=== PATIENT | male | born 1930 | race Caucasian/White ===

== ENCOUNTER 2017-07-16 16:33 | Inpatient (IN) ==
--- OUTSIDE RECORDS SUMMARY | 2017-07-16 17:01 | External Medical Summary | Continuity of Care Document ---
:1930 Author Organization [facility] Care Team Providers Name Role Phone SENIOR STEWART PRADO Admitting Physician NIKOLAS ZABMRANO Attending Physician Hospital Admission Diagnosis Code Admission Diagnosis Date [id number] Chronic atrial fibrillation Social History Element Code Description Smoking Start Date End Date Description Status Code System Smoking Status [id number] Unknown if ever SNOMED-CT smoked Problems No data in the system Medications SNOMED CT Description [id number] Drug Treatment Unknown Allergies No Allergy Data in the System Results Laboratory Results Order: Protime With INRLegend: D=Delta, H= High, L=Low, HH=Critical High, LL=Critical Low, AA=Critical Alpha-Numeric, C= Corrected, A=Abnormal LOINC Test Result Flag Range Units Date 1PT 26.3 H 9.1-11.6 Seconds 06/07/2016 05:35 36367-2 1INR p 2.50 H 0.90-1.15 06/07/2016 heparin 05:35 adsorption PPP Performing [id number] - [address] [place], [place] [address]GBZCARLOS SWARTZ Vital Signs No data in the system Plan of Care No data in the system Procedures No data in the system Encounters Date Code Diagnosis Status (ICD10) - I482 CHRONIC ATRIAL FIBRILLATION Active Immunizations No data in the system Functional Status No data in the system Hospital Discharge Instructions No data in the system
--- OUTSIDE RECORDS SUMMARY | 2017-07-16 17:01 | External Medical Summary | Continuity of Care Document ---
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 Social History Element Code Description Smoking Start Date End Date Description Status Code System Smoking Status [id number] Unknown if ever SNOMED-CT smoked Problems No data in the system Medications SNOMED CT Description 811108274 Drug Treatment Unknown Allergies No Allergy Data in the System Results Laboratory Results Order: Protime With INRLegend: D=Delta, H= High, L=Low, HH=Critical High, LL=Critical Low, AA=Critical Alpha-Numeric, C= Corrected, A=Abnormal LOINC Test Result Flag Range Units Date 1PT 27.4 H 9.1-11.6 Seconds 01/31/2017 06:25 74454-2 1INR p 2.63 H 0.90-1.15 01/31/2017 heparin 06:25 adsorption PPP [facility]forming [facility] [id number] - [address] [place] [address] - [facility] Vital Signs No data in the system Plan of Care No data in the system Procedures No data in the system Encounters Date Code Diagnosis Status (ICD10) - 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
--- OUTSIDE RECORDS SUMMARY | 2017-07-16 17:01 | External Medical Summary | Continuity of Care Document ---
:1930 Author Organization [facility] Care Team Providers Name Role Phone SENIOR JOHAN LIVING Admitting Physician NIKOLAS ZAMBRANO Attending Physician Hospital Admission Diagnosis No data in the System Social History Element Code Description Smoking Start Date End Date Description Status Code System Smoking Status [id number] Unknown if ever SNOMED-CT smoked Problems No data in the system Medications SNOMED CT Description 168929601 Drug Treatment Unknown Allergies No Allergy Data in the System Results Laboratory Results Order: Protime With INRLegend: D=Delta, H= High, L=Low, HH=Critical High, LL=Critical Low, AA=Critical Alpha-Numeric, C= Corrected, A=Abnormal LOINC Test Result Flag Range Units Date 1PT 23.5 H 9.1-11.6 Seconds 04/25/2017 05:50 39133-9 1INR p 2.26 H 0.90-1.15 04/25/2017 heparin 05:50 adsorption PPP Performing [facility] [id number] - [address] [place] [address] - [facility] Vital Signs No data in the system Plan of Care No data in the system Procedures No data in the system Encounters No data in the system Immunizations No data in the system Functional Status No data in the system Hospital Discharge Instructions No data in the system
--- OUTSIDE RECORDS SUMMARY | 2017-07-16 17:01 | External Medical Summary | Continuity of Care Document ---
:1930 Author Organization [facility] Care Team Providers Name Role Phone SENIOR JOHAN LIVING Admitting Physician NIKOLAS ZAMBRANO Attending Physician Hospital Admission Diagnosis No data in the System Social History Element Code Description Smoking Start Date End Date Description Status Code System Smoking Status [id number] Never smoker SNOMED-CT Problems No data in the system Medications SNOMED CT Description 994275048 Drug Treatment Unknown Allergies No Allergy Data in the System Results Laboratory Results Order: Protime With INRLegend: D=Delta, H= High, L=Low, HH=Critical High, LL=Critical Low, AA=Critical Alpha-Numeric, C= Corrected, A=Abnormal LOINC Test Result Flag Range Units Date 1PT 29.7 H 9.1-11.6 Seconds 12/27/2016 06:25 53810-8 1INR p 2.86 H 0.90-1.15 12/27/2016 heparin 06:25 adsorption PPP Performing [facility] [id number] - [address] [place] [address] - [facility] Vital Signs No data in the system Plan of Care No data in the system Procedures No data in the system Encounters No data in the system Immunizations No data in the system Functional Status No data in the system Hospital Discharge Instructions No data in the system
--- OUTSIDE RECORDS SUMMARY | 2017-07-16 17:01 | External Medical Summary | Continuity of Care Document ---
:1930 Author Organization [facility] Care Team Providers Name Role Phone SENIOR JOHAN LIVING Admitting Physician NIKOLAS ZAMBRANO Attending Physician Hospital Admission Diagnosis No data in the System Social History Element Code Description Smoking Start Date End Date Description Status Code System Smoking Status [id number] Unknown if ever SNOMED-CT smoked Problems No data in the system Medications SNOMED CT Description 148886535 Drug Treatment Unknown Allergies No Allergy Data in the System Results Laboratory Results Order: Protime With INRLegend: D=Delta, H= High, L=Low, HH=Critical High, LL=Critical Low, AA=Critical Alpha-Numeric, C= Corrected, A=Abnormal LOINC Test Result Flag Range Units Date 1PT 31.4 H 9.1-11.6 Seconds 12/20/2016 06:00 44148-3 1INR p 3.02 H 0.90-1.15 12/20/2016 heparin 06:00 adsorption PPP Performing [facility] [id number] [facility] [address] [place] [address] - [facility] Vital Signs No data in the system Plan of Care No data in the system Procedures No data in the system Encounters No data in the system Immunizations No data in the system Functional Status No data in the system Hospital Discharge Instructions No data in the system
--- OUTSIDE RECORDS SUMMARY | 2017-07-16 17:01 | External Medical Summary ---
:1930 Author Organization [facility] Care Team Providers Name Role Phone NIKOLAS ZAMBRANO MD Primary Care Provider [phone] Summary purpose CCDA Sent to [facility] Chief Complaint and Reason for Visit No authorized Reason for Visit (Admitting Diagnosis) is available for this visit. Problem list No authorized problems tracked for continuity of care are available for this visit. Encounters No authorized problems tracked for encounter diagnoses are available for this visit. Medications No medications recorded for this patient visit Allergies, adverse reactions, alerts No allergy information is available for this patient. Immunizations No immunizations recorded for this patient visit Relevant diagnostic tests and/or laboratory data RESULTS [facility] [id number]:31:00 Result Normal Range Units INR 2.63 Protime H 26.5 9.0-11.0 Sec History of procedures Procedure Code Code Type Description Date Performed Performing Physician 03086 CPT-4 ROUTINE VENIPUNCTURE 03-06-2016 NIKOLAS ZAMBRANO 69803 CPT-4 PROTHROMBIN TIME 03-06-2016 NIKOLAS ZAMBRANO Functional status No functional or cognitive status observations are available for this visit. Vital signs No authorized vital signs are available for this visit. Social history No Social History or smoking status observations were recorded for this visit. ( Unknown if ever smoked.) Treatment Plan No treatment plan text is available for this visit. Hospital discharge instructions No discharge instruction text is available for this visit.
--- OUTSIDE RECORDS SUMMARY | 2017-07-16 17:01 | External Medical Summary | Continuity of Care Document ---
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 Social History Element Code Description Smoking Start Date End Date Description Status Code System Smoking Status [id number] Unknown if ever SNOMED-CT smoked Problems No data in the system Medications SNOMED CT Description 206169304 Drug Treatment Unknown Allergies No Allergy Data in the System Results Laboratory Results Order: Protime With INRLegend: D=Delta, H= High, L=Low, HH=Critical High, LL=Critical Low, AA=Critical Alpha-Numeric, C= Corrected, A=Abnormal LOINC Test Result Flag Range Units Date 1PT 29.7 H 9.1-11.6 Seconds 04/18/2017 05:40 58083-5 1INR p 2.86 H 0.90-1.15 04/18/2017 heparin 05:40 adsorption PPP Performing Lab Footnotes:[facility] [id number] - [address] [place] [address] - [facility] Vital Signs No data in the system Plan of Care No data in the system Procedures No data in the system Encounters Date Code Diagnosis Status (ICD10) - Z7901 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
--- OUTSIDE RECORDS SUMMARY | 2017-07-16 17:01 | External Medical Summary | Continuity of Care Document ---
:1930 Author Organization [facility] Care Team Providers Name Role Phone SENIOR STEWART PRADO Admitting Physician NIKOLAS ZAMBRANO Attending Physician Hospital Admission Diagnosis Code Admission Diagnosis Date [id number] Chronic atrial fibrillation Social History Element Code Description Smoking Start Date End Date Description Status Code System Smoking Status [id number] Unknown if ever SNOMED-CT smoked Problems No data in the system Medications SNOMED CT Description 684258528 Drug Treatment Unknown Allergies No Allergy Data in the System Results Laboratory Results Order: Protime With INRLegend: D=Delta, H= High, L=Low, HH=Critical High, LL=Critical Low, AA=Critical Alpha-Numeric, C= Corrected, A=Abnormal LOINC Test Result Flag Range Units Date 1PT 24.2 H 9.1-11.6 Seconds 07/05/2016 06:10 36453-6 1INR p 2.31 H 0.90-1.15 07/05/2016 heparin 06:10 adsorption PPP Performing Lab Footnotes:[facility] - [id number] - [address] [place], [place] [address]NYSCARLOS SWARTZ Vital Signs No data in the system Plan of Care No data in the system Procedures No data in the system Encounters Date Code Diagnosis Status (ICD10) - I482 CHRONIC ATRIAL FIBRILLATION Active Immunizations No data in the system Functional Status No data in the system Hospital Discharge Instructions No data in the system
--- OUTSIDE RECORDS SUMMARY | 2017-07-16 17:01 | External Medical Summary | Continuity of Care Document ---
:1930 Author Organization [facility] Care Team Providers Name Role Phone NIKOLAS ZAMBRANO Admitting Physician NIKOLAS ZAMBRANO Attending Physician Hospital Admission Diagnosis No data in the System Social History Element Code Description Smoking Start Date End Date Description Status Code System Smoking Status [id number] Unknown if ever SNOMED-CT smoked Problems No data in the system Medications SNOMED CT Description 497117929 Drug Treatment Unknown Allergies No Allergy Data in the System Results Laboratory Results Order: UrinalysisLegend: D=Delta, H=High, L =Low, HH=Critical High, LL=Critical Low, AA=Critical Alpha-Numeric, C=Corrected , A=Abnormal LOINC Test Result Flag Range Units Date 5778-6 Straw 07/11/2017 1Color Ur 16:25 17771-8 Clear 07/11/2017 1Clarity Ur 16:25 2966-0 1Sp 1.015 1.005-1.030 07/11/2017 Gr 24h Ur 16:25 2756-5 1pH 5.0 5.0-7.0 07/11/2017 Ur 16:25 76645-1 Negative NEGATIVE 07/11/2017 1Leukocyte 16:25 esterase Ur-aCnc 46199-1 Negative NEGATIVE 07/11/2017 1Nitrite Ur Ql 16:25 Strip.auto 25708-8 Negative NEGATIVE 07/11/2017 1Prot 16:25 Tiss-mCnt 2349-9 Negative NEGATIVE 07/11/2017 1Glucose Ur Ql 16:25 54237-4 1MEK Negative NEGATIVE 07/11/2017 Ur-mCnc 16:25 1977-8 Negative NEGATIVE 07/11/2017 1Bilirub Ur Ql 16:25 38778-7 0.2 <=1.0 07/11/2017 1Urobilinogen 16:25 Ur Ql 933-2 1Bld Negative NEGATIVE 07/11/2017 Prod Typ BPU 16:25 93833-1 N 07/11/2017 1Micro UrnS 16:25 Performing [facility] [id number] - [address] [place] [address] [facility] Vital Signs No data in the system Plan of Care No data in the system Procedures No data in the system Encounters No data in the system Immunizations No data in the system Functional Status No data in the system Hospital Discharge Instructions No data in the system
--- OUTSIDE RECORDS SUMMARY | 2017-07-16 17:01 | External Medical Summary | Continuity of Care Document ---
:1930 Author Organization [facility] Care Team Providers Name Role Phone SENIOR JOHAN LIVING Admitting Physician NIKOLAS ZAMBRANO Attending Physician Hospital Admission Diagnosis No data in the System Social History Element Code Description Smoking Start Date End Date Description Status Code System Smoking Status [id number] Unknown if ever SNOMED-CT smoked Problems No data in the system Medications SNOMED CT Description 856990888 Drug Treatment Unknown Allergies No Allergy Data in the System Results Laboratory Results Order: Protime With INRLegend: D=Delta, H= High, L=Low, HH=Critical High, LL=Critical Low, AA=Critical Alpha-Numeric, C= Corrected, A=Abnormal LOINC Test Result Flag Range Units Date 1PT 28.2 H 9.1-11.6 Seconds 01/03/2017 06:25 26693-8 1INR p 2.71 H 0.90-1.15 01/03/2017 heparin 06:25 adsorption PPP Performing [facility] [id number] - [address] [place] [address] - [facility] Vital Signs No data in the system Plan of Care No data in the system Procedures No data in the system Encounters No data in the system Immunizations No data in the system Functional Status No data in the system Hospital Discharge Instructions No data in the system
--- OUTSIDE RECORDS SUMMARY | 2017-07-16 17:01 | External Medical Summary | Continuity of Care Document ---
:1930 Author Organization [facility] Care Team Providers Name Role Phone PAULSENIOR STEWART BREWSTER Admitting Physician NIKOLAS ZAMBRANO Attending Physician Hospital Admission Diagnosis Code Admission Diagnosis Date [id number] Chronic atrial fibrillation Social History Element Code Description Smoking Start Date End Date Description Status Code System Smoking Status 223910565 Never smoker SNOMED-CT Problems No data in the system Medications SNOMED CT Description 220788138 Drug Treatment Unknown Allergies No Allergy Data in the System Results Laboratory Results Order: Protime With INRLegend: D=Delta, H= High, L=Low, HH=Critical High, LL=Critical Low, AA=Critical Alpha-Numeric, C= Corrected, A=Abnormal LOINC Test Result Flag Range Units Date 1PT 29.7 H 9.1-11.6 Seconds 12/27/2016 06:25 80471-9 1INR p 2.86 H 0.90-1.15 12/27/2016 heparin 06:25 adsorption PPP Performing [facility] [id number] - [address] [place] [address] - [facility] Vital Signs No data in the system Plan of Care No data in the system Procedures No data in the system Encounters Date Code Diagnosis Status (ICD10) - I482 CHRONIC ATRIAL FIBRILLATION Active Immunizations No data in the system Functional Status No data in the system Hospital Discharge Instructions No data in the system
--- OUTSIDE RECORDS SUMMARY | 2017-07-16 17:01 | External Medical Summary | Continuity of Care Document ---
:1930 Author Organization [facility] Care Team Providers Name Role Phone SENIOR STEWART PRADO Admitting Physician NIKOLAS ZAMBRANO Attending Physician Hospital Admission Diagnosis Code Admission Diagnosis Date [id number] Chronic atrial fibrillation Social History Element Code Description Smoking Start Date End Date Description Status Code System Smoking Status 368952873 Unknown if ever SNOMED-CT smoked Problems No data in the system Medications SNOMED CT Description 886565500 Drug Treatment Unknown Allergies No Allergy Data in the System Results Laboratory Results Order: Protime With INRLegend: D=Delta, H= High, L=Low, HH=Critical High, LL=Critical Low, AA=Critical Alpha-Numeric, C= Corrected, A=Abnormal LOINC Test Result Flag Range Units Date 1PT 12.1 H 9.1-11.6 Seconds 04/05/2016 05:35 94435-0 1INR p 1.17 H 0.90-1.15 04/05/2016 heparin 05:35 adsorption PPP Performing Lab Footnotes:[facility] [id number] - [address] [place], [place] [address]DBBCARLOS SWARTZ Vital Signs No data in the system Plan of Care No data in the system Procedures No data in the system Encounters Date Code Diagnosis Status (ICD10) - I482 CHRONIC ATRIAL FIBRILLATION Active Immunizations No data in the system Functional Status No data in the system Hospital Discharge Instructions No data in the system
--- OUTSIDE RECORDS SUMMARY | 2017-07-16 17:01 | External Medical Summary | Continuity of Care Document ---
:1930 Author Organization [facility] Care Team Providers Name Role Phone SENIOR JOHAN LIVING Admitting Physician NIKOLAS ZAMBRANO Attending Physician Hospital Admission Diagnosis No data in the System Social History Element Code Description Smoking Start Date End Date Description Status Code System Smoking Status [id number] Unknown if ever SNOMED-CT smoked Problems No data in the system Medications SNOMED CT Description 228759315 Drug Treatment Unknown Allergies No Allergy Data in the System Results Laboratory Results Order: Protime With INRLegend: D=Delta, H= High, L=Low, HH=Critical High, LL=Critical Low, AA=Critical Alpha-Numeric, C= Corrected, A=Abnormal LOINC Test Result Flag Range Units Date 1PT 25.2 H 9.1-11.6 Seconds 02/14/2017 05:25 55920-5 1INR p 2.42 H 0.90-1.15 02/14/2017 heparin 05:25 adsorption PPP Performing Lab [facility] [id number] - [address] [place] [address] - [facility] Vital Signs No data in the system Plan of Care No data in the system Procedures No data in the system Encounters No data in the system Immunizations No data in the system Functional Status No data in the system Hospital Discharge Instructions No data in the system
--- OUTSIDE RECORDS SUMMARY | 2017-07-16 17:01 | External Medical Summary | Continuity of Care Document ---
:1930 Author Organization [facility] Care Team Providers Name Role Phone ALISASENIOR STEWART SAN Admitting Physician NIKOLAS ZAMBRANO Attending Physician Hospital Admission Diagnosis Code Admission Diagnosis Date [id number] Chronic atrial fibrillation Social History Element Code Description Smoking Start Date End Date Description Status Code System Smoking Status [id number] Unknown if ever SNOMED-CT smoked Problems No data in the system Medications SNOMED CT Description 237602635 Drug Treatment Unknown Allergies No Allergy Data in the System Results Laboratory Results Order: Protime With INRLegend: D=Delta, H= High, L=Low, HH=Critical High, LL=Critical Low, AA=Critical Alpha-Numeric, C= Corrected, A=Abnormal LOINC Test Result Flag Range Units Date 1PT 25.9 H 9.1-11.6 Seconds 01/17/2017 07:17 57016-9 1INR p 2.48 H 0.90-1.15 01/17/2017 heparin 07:17 adsorption PPP Performing Lab [facility] [id number] - [address] [place] [address] - [facility] Vital Signs No data in the system Plan of Care No data in the system Procedures No data in the system Encounters Date Code Diagnosis Status (ICD10) - I482 CHRONIC ATRIAL FIBRILLATION Active Immunizations No data in the system Functional Status No data in the system Hospital Discharge Instructions No data in the system
--- OUTSIDE RECORDS SUMMARY | 2017-07-16 17:01 | External Medical Summary | Continuity of Care Document ---
:1930 Author Organization [facility] Care Team Providers Name Role Phone SENIOR JOHAN LIVING Admitting Physician NIKOLAS ZAMBRANO Attending Physician Hospital Admission Diagnosis No data in the System Social History Element Code Description Smoking Start Date End Date Description Status Code System Smoking Status [id number] Unknown if ever SNOMED-CT smoked Problems No data in the system Medications SNOMED CT Description 909272256 Drug Treatment Unknown Allergies No Allergy Data in the System Results Laboratory Results Order: Protime With INRLegend: D=Delta, H= High, L=Low, HH=Critical High, LL=Critical Low, AA=Critical Alpha-Numeric, C= Corrected, A=Abnormal LOINC Test Result Flag Range Units Date 1PT 29.7 H 9.1-11.6 Seconds 04/18/2017 05:40 07309-1 1INR p 2.86 H 0.90-1.15 04/18/2017 heparin 05:40 adsorption PPP Performing [facility] [id number] - [address] [place] [address] - [facility] Vital Signs No data in the system Plan of Care No data in the system Procedures No data in the system Encounters No data in the system Immunizations No data in the system Functional Status No data in the system Hospital Discharge Instructions No data in the system
--- OUTSIDE RECORDS SUMMARY | 2017-07-16 17:01 | External Medical Summary | Continuity of Care Document ---
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 Social History Element Code Description Smoking Start Date End Date Description Status Code System Smoking Status [id number] Unknown if ever SNOMED-CT smoked Problems No data in the system Medications SNOMED CT Description 775802898 Drug Treatment Unknown Allergies No Allergy Data in the System Results Laboratory Results Order: Protime With INRLegend: D=Delta, H= High, L=Low, HH=Critical High, LL=Critical Low, AA=Critical Alpha-Numeric, C= Corrected, A=Abnormal LOINC Test Result Flag Range Units Date 1PT 21.6 H 9.1-11.6 Seconds 05/02/2017 05:45 27611-5 1INR p 2.07 H 0.90-1.15 05/02/2017 heparin 05:45 adsorption PPP Performing [id number] [address] [place] [address] - [facility] Vital Signs No data in the system Plan of Care No data in the system Procedures No data in the system Encounters Date Code Diagnosis Status (ICD10) - Z7901 [employer] CURRNT USE Active ANTICOAGULANTS Immunizations No data in the system Functional Status No data in the system Hospital Discharge Instructions No data in the system
--- OUTSIDE RECORDS SUMMARY | 2017-07-16 17:01 | External Medical Summary | Continuity of Care Document ---
:1930 Author Organization [facility] Care Team Providers Name Role Phone JOHAN [facility] Admitting Physician NIKOLAS ZAMBRANO Attending Physician Hospital Admission Diagnosis No data in the System Social History Element Code Description Smoking Start Date End Date Description Status Code System Smoking Status [id number] Unknown if ever SNOMED-CT smoked Problems No data in the system Medications SNOMED CT Description [id number] Drug Treatment Unknown Allergies No Allergy Data in the System Results Laboratory Results Order: Basic Metabolic PanelLegend: D=Delta , H=High, L=Low, HH=Critical High, LL=Critical Low, AA=Critical Alpha-Numeric, C =Corrected, A=Abnormal LOINC Test Result Flag Range Units Date 2345-05 151 H 70-105 mg/dl 04/04/2017 1Glucose 05:35 SerPl-mCnc 3094-0 15 7-25 mg/dl 04/04/2017 1BUN 05:35 SerPl-mCnc 2160-0 1.2 0.6-1.3 mg/dl 04/04/2017 1Creat 05:35 SerPl-mCnc 04921-1 13 13-39 04/04/2017 1Creat/Urea 05:35 nit SerPl 2951-2 138 135-145 mmol/L 04/04/2017 1Sodium 05:35 SerPl-sCnc 23410-6 4.0 3.5-5.1 mmol/L 04/04/2017 1Potassium 05:35 SerPl-mCnc 2075-0 104 98-107 mmol/l 04/04/2017 1Chloride 05:35 SerPl-sCnc 8-9 26 21-31 mmol/l 04/04/2017 1CO2 05:35 SerPl-sCnc 52549-4 12 9-16 mmol/L 04/04/2017 1Anion Gap 05:35 [facility] 2692-2 290 277-298 mOsm/kg 04/04/2017 1Osmolality 05:35 [facility] 36818-9 8.8 8.2-10.0 mg/dl 04/04/2017 1Calcium 05:35 [facility] 59 L 60-116 GFRunits 04/04/2017 1GFR 05:35 [facility]forming [id number] [address] [place] Order: Protime With INRLegend: D=Delta, H=High, L=Low, HH=Critical High, LL= Critical Low, AA=Critical Alpha-Numeric, C=Corrected, A=Abnormal LOINC Test Result Flag Range Units Date 1PT 20.7 H 9.1-11.6 Seconds 04/04/2017 05:35 65197-7 1INR p 1.98 H 0.90-1.15 04/04/2017 heparin 05:35 adsorption PPP Performing Lab Footnotes:[address] [place] [address] [id number] - [address] [place] [address] [place] Vital Signs No data in the system Plan of Care No data in the system Procedures No data in the system Encounters No data in the system Immunizations No data in the system Functional Status No data in the system Hospital Discharge Instructions No data in the system
--- OUTSIDE RECORDS SUMMARY | 2017-07-16 17:01 | External Medical Summary | Continuity of Care Document ---
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 Social History Element Code Description Smoking Start Date End Date Description Status Code System Smoking Status [id number] Unknown if ever SNOMED-CT smoked Problems No data in the system Medications SNOMED CT Description [id number] Drug Treatment Unknown Allergies No Allergy Data in the System Results Laboratory Results Order: Protime With INRLegend: D=Delta, H= High, L=Low, HH=Critical High, LL=Critical Low, AA=Critical Alpha-Numeric, C= Corrected, A=Abnormal LOINC Test Result Flag Range Units Date 1PT 29.7 H 9.1-11.6 Seconds 04/26/2016 05:15 22289-9 1INR p 2.82 H 0.90-1.15 04/26/2016 heparin 05:15 adsorption PPP Performing Lab Footnotes[facility] [id number] - [address] [place] [address] [id number] SWARTZ Vital Signs No data in the system Plan of Care No data in the system Procedures No data in the system Encounters Date Code Diagnosis Status (ICD10) - 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
--- OUTSIDE RECORDS SUMMARY | 2017-07-16 17:01 | External Medical Summary ---
:1930 Author Organization [facility] Care Team Providers Name Role Phone NIKOLAS ZAMBRANO MD Primary Care Provider [phone] Summary purpose CCDA Sent to [facility] Chief Complaint and Reason for Visit No [...] Relevant diagnostic tests and/or laboratory data RESULTS [facility] [id number]:00 Result Normal Range Units INR 2.90 Protime H 30.4 9.0-11.0 Sec History of procedures Procedure Code Code Type Description Date Performed Performing Physician 14162 CPT-4 PROTHROMBIN TIME 01-24-2016 NIKOLAS ZAMBRANO 31946 CPT-4 ROUTINE VENIPUNCTURE 01-24-2016 NIKOLAS ZAMBRANO Functional status No functional or [...]
--- OUTSIDE RECORDS SUMMARY | 2017-07-16 17:01 | External Medical Summary | Continuity of Care Document ---
:1930 Author Organization [facility] Care Team Providers Name Role Phone PAULSENIOR STEWART BREWSTER Admitting Physician NIKOLAS ZAMBRANO Attending Physician Hospital Admission Diagnosis Code Admission Diagnosis Date [id number] Chronic atrial fibrillation Social History Element Code Description Smoking Start Date End Date Description Status Code System Smoking Status [id number] Unknown if ever SNOMED-CT smoked Problems No data in the system Medications SNOMED CT Description [id number] Drug Treatment Unknown Allergies No Allergy Data in the System Results Laboratory Results Order: Protime With INRLegend: D=Delta, H= High, L=Low, HH=Critical High, LL=Critical Low, AA=Critical Alpha-Numeric, C= Corrected, A=Abnormal LOINC Test Result Flag Range Units Date 1PT 25.2 H 9.1-11.6 Seconds 02/14/2017 05:25 10517-3 1INR p 2.42 H 0.90-1.15 02/14/2017 heparin 05:25 adsorption PPP Performing Lab Footnotes:[facility] [id number] - [address] [place] [address] - [facility] Vital Signs No data in the system Plan of Care No data in the system Procedures No data in the system Encounters Date Code Diagnosis Status (ICD10) - I482 CHRONIC ATRIAL FIBRILLATION Active Immunizations No data in the system Functional Status No data in the system Hospital Discharge Instructions No data in the system
--- OUTSIDE RECORDS SUMMARY | 2017-07-16 17:01 | External Medical Summary | Continuity of Care Document ---
:1930 Author Organization [facility] Care Team Providers Name Role Phone SENIOR STEWART PRADO Admitting Physician NIKOLAS ZAMBRANO Attending Physician Hospital Admission Diagnosis No data in the System Social History Element Code Description Smoking Start Date End Date Description Status Code System Smoking Status [id number] Unknown if ever SNOMED-CT smoked Problems No data in the system Medications SNOMED CT Description 513135434 Drug Treatment Unknown Allergies No Allergy Data in the System Results Laboratory Results Order: Protime With INRLegend: D=Delta, H= High, L=Low, HH=Critical High, LL=Critical Low, AA=Critical Alpha-Numeric, C= Corrected, A=Abnormal LOINC Test Result Flag Range Units Date 1PT 26.4 H 9.1-11.6 Seconds 09/27/2016 07:35 15626-7 1INR p 2.51 H 0.90-1.15 09/27/2016 heparin 07:35 adsorption PPP Performing Lab Footnotes[facility] [id number] - [address] [place] [address] - [facility] NAHUN Vital Signs No data in the system Plan of Care No data in the system Procedures No data in the system Encounters No data in the system Immunizations No data in the system Functional Status No data in the system Hospital Discharge Instructions No data in the system
--- OUTSIDE RECORDS SUMMARY | 2017-07-16 17:01 | External Medical Summary | Continuity of Care Document ---
:1930 Author Organization [facility] Care Team Providers Name Role Phone SENIOR JOHAN LIVING Admitting Physician NIKOLAS ZAMBRANO Attending Physician Hospital Admission Diagnosis No data in the System Social History Element Code Description Smoking Start Date End Date Description Status Code System Smoking Status [id number] Unknown if ever SNOMED-CT smoked Problems No data in the system Medications SNOMED CT Description 315544664 Drug Treatment Unknown Allergies No Allergy Data in the System Results Laboratory Results Order: Protime With INRLegend: D=Delta, H= High, L=Low, HH=Critical High, LL=Critical Low, AA=Critical Alpha-Numeric, C= Corrected, A=Abnormal LOINC Test Result Flag Range Units Date 1PT 29.1 H 9.1-11.6 Seconds 11/22/2016 06:00 66643-2 1INR p 2.81 H 0.90-1.15 11/22/2016 heparin 06:00 adsorption PPP Performing [facility] [id number] - [address] [place] [address] - [facility] [place] Vital Signs No data in the system Plan of Care No data in the system Procedures No data in the system Encounters No data in the system Immunizations No data in the system Functional Status No data in the system Hospital Discharge Instructions No data in the system
--- OUTSIDE RECORDS SUMMARY | 2017-07-16 17:01 | External Medical Summary | Continuity of Care Document ---
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 Social History Element Code Description Smoking Start Date End Date Description Status Code System Smoking Status [id number] Unknown if ever SNOMED-CT smoked Problems No data in the system Medications SNOMED CT Description 607750040 Drug Treatment Unknown Allergies No Allergy Data in the System Results Laboratory Results Order: Protime With INRLegend: D=Delta, H= High, L=Low, HH=Critical High, LL=Critical Low, AA=Critical Alpha-Numeric, C= Corrected, A=Abnormal LOINC Test Result Flag Range Units Date 1PT 29.1 H 9.1-11.6 Seconds 10/25/2016 05:35 97347-1 1INR p 2.81 H 0.90-1.15 10/25/2016 heparin 05:35 adsorption PPP Performing [facility] [id number] - [address] [place] [address] - [facility] Vital Signs No data in the system Plan of Care No data in the system Procedures No data in the system Encounters Date Code Diagnosis Status (ICD10) - Z7901 INTERMEDIATE CURRNT USE Active ANTICOAGULANTS Immunizations No data in the system Functional Status No data in the system Hospital Discharge Instructions No data in the system
--- OUTSIDE RECORDS SUMMARY | 2017-07-16 17:01 | External Medical Summary | Continuity of Care Document ---
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 Social History Element Code Description Smoking Start Date End Date Description Status Code System Smoking Status [id number] Unknown if ever SNOMED-CT smoked Problems No data in the system Medications SNOMED CT Description 690441461 Drug Treatment Unknown Allergies No Allergy Data in the System Results Laboratory Results Order: Protime With INRLegend: D=Delta, H= High, L=Low, HH=Critical High, LL=Critical Low, AA=Critical Alpha-Numeric, C= Corrected, A=Abnormal LOINC Test Result Flag Range Units Date 1PT 16.7 H 9.1-11.6 Seconds 04/12/2016 05:55 40459-1 1INR p 1.60 H 0.90-1.15 04/12/2016 heparin 05:55 adsorption PPP Performing Lab Footnotes:[facility] - [id number] - [address] [place], [place] [address]UYICARLOS SWARTZ Vital Signs No data in the system Plan of Care No data in the system Procedures No data in the system Encounters Date Code Diagnosis Status (ICD10) - Z7901 LONGTERM CURRNT USE Active ANTICOAGULANTS Immunizations No data in the system Functional Status No data in the system Hospital Discharge Instructions No data in the system
--- OUTSIDE RECORDS SUMMARY | 2017-07-16 17:01 | External Medical Summary | Continuity of Care Document ---
:1930 Author Organization [facility] Care Team Providers Name Role Phone JOHAN CORRECTION Admitting Physician NIKOLAS ZAMBRANO Attending Physician Hospital Admission Diagnosis Code Admission Diagnosis Date LONGTERM (CURRENT) USE OF ANTICOAGULANTS Social History Element Code Description Smoking Start Date End Date Description Status Code System Smoking Status [id number] Unknown if ever SNOMED-CT smoked Problems No data in the system Medications SNOMED CT Description 561637785 Drug Treatment Unknown Allergies No Allergy Data in the System Results Laboratory Results Order: Protime With INRLegend: D=Delta, H= High, L=Low, HH=Critical High, LL=Critical Low, AA=Critical Alpha-Numeric, C= Corrected, A=Abnormal LOINC Test Result Flag Range Units Date 1PT 31.4 H 9.1-11.6 Seconds 12/20/2016 06:00 28956-5 1INR p 3.02 H 0.90-1.15 12/20/2016 heparin 06:00 adsorption PPP Performing [facility] Foot[facility] [id number] - [address] [place] [address] - [facility] Vital Signs No data in [...]
--- OUTSIDE RECORDS SUMMARY | 2017-07-16 17:01 | External Medical Summary | Continuity of Care Document ---
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 Social History Element Code Description Smoking Start Date End Date Description Status Code System Smoking Status [id number] Unknown if ever SNOMED-CT smoked Problems No data in the system Medications SNOMED CT Description 186027433 Drug Treatment Unknown Allergies No Allergy Data in the System Results Laboratory Results Order: Protime With INRLegend: D=Delta, H= High, L=Low, HH=Critical High, LL=Critical Low, AA=Critical Alpha-Numeric, C= Corrected, A=Abnormal LOINC Test Result Flag Range Units Date 1PT 24.3 H 9.1-11.6 Seconds 02/28/2017 05:40 91707-8 1INR p 2.33 H 0.90-1.15 02/28/2017 heparin 05:40 adsorption PPP Performing Lab Footnotes:[facility] - [id number] - [address] [place] [address] - [facility] Vital Signs No data in the system Plan of Care No data in the system Procedures No data in the system Encounters Date Code Diagnosis Status (ICD10) - Z7901 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
--- OUTSIDE RECORDS SUMMARY | 2017-07-16 17:01 | External Medical Summary | Continuity of Care Document ---
:1930 Author Organization [facility] Care Team Providers Name Role Phone SENIOR STEWART PRADO Admitting Physician NIKOLAS ZAMBRANO Attending Physician Hospital Admission Diagnosis Code Admission Diagnosis Date GROUP HOME (CURRENT) USE OF ANTICOAGULANTS Social History Element Code Description Smoking Start Date End Date Description Status Code System Smoking Status [id number] Unknown if ever SNOMED-CT smoked Problems No data in the system Medications SNOMED CT Description 012942268 Drug Treatment Unknown Allergies No Allergy Data in the System Results Laboratory Results Order: Protime With INRLegend: D=Delta, H= High, L=Low, HH=Critical High, LL=Critical Low, AA=Critical Alpha-Numeric, C= Corrected, A=Abnormal LOINC Test Result Flag Range Units Date 1PT 28.6 H 9.1-11.6 Seconds 08/02/2016 06:10 79077-9 1INR p 2.72 H 0.90-1.15 08/02/2016 heparin 06:10 adsorption PPP Performing Lab Footnotes:[facility] [id number] - [address] [place] [address] - [facility] Vital Signs No data in the system Plan of Care No data in the system Procedures No data in the system Encounters Date Code 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
--- OUTSIDE RECORDS SUMMARY | 2017-07-16 17:01 | External Medical Summary | Continuity of Care Document ---
:1930 Author Organization [facility] Care Team Providers Name Role Phone JOHAN ASSISTED Admitting Physician NIKOLAS ZAMBRANO Attending Physician Hospital Admission Diagnosis Code Admission Diagnosis Date DETENTION (CURRENT) USE OF ANTICOAGULANTS Social History Element Code Description Smoking Start Date End Date Description Status Code System Smoking Status [id number] Unknown if ever SNOMED-CT smoked Problems No data in the system Medications SNOMED CT Description 160197498 Drug Treatment Unknown Allergies No Allergy Data in the System Results Laboratory Results Order: Protime With INRLegend: D=Delta, H= High, L=Low, HH=Critical High, LL=Critical Low, AA=Critical Alpha-Numeric, C= Corrected, A=Abnormal LOINC Test Result Flag Range Units Date 1PT 29.1 H 9.1-11.6 Seconds 11/22/2016 06:00 08455-8 1INR p 2.81 H 0.90-1.15 11/22/2016 heparin 06:00 adsorption PPP Performing [facility] [id number] - [address] [place] [address] - [facility] Vital Signs No data in the system Plan of Care No data in the system Procedures No data in the system Encounters Date Code Diagnosis Status (ICD10) - Z7901 [facility] CURRNT USE Active ANTICOAGULANTS Immunizations No data in the system Functional Status No data in the system Hospital Discharge Instructions No data in the system
--- OUTSIDE RECORDS SUMMARY | 2017-07-16 17:01 | External Medical Summary | Continuity of Care Document ---
:1930 Author Organization [facility] Care Team Providers Name Role Phone JOHAN LONG TERM Admitting Physician NIKOLAS ZAMBRANO Attending Physician Hospital Admission Diagnosis Code Admission Diagnosis Date CORRECTION (CURRENT) USE OF ANTICOAGULANTS Social History Element Code Description Smoking Start Date End Date Description Status Code System Smoking Status [id number] Never smoker SNOMED-CT Problems No data in the system Medications SNOMED CT Description [id number] Drug Treatment Unknown Allergies No Allergy Data in the System Results Laboratory Results Order: Protime With INRLegend: D=Delta, H= High, L=Low, HH=Critical High, LL=Critical Low, AA=Critical Alpha-Numeric, C= Corrected, A=Abnormal LOINC Test Result Flag Range Units Date 1PT 20.1 H 9.1-11.6 Seconds 04/11/2017 05:25 96155-7 1INR p 1.92 H 0.90-1.15 04/11/2017 heparin 05:25 adsorption PPP Performing Lab Footnotes:[facility] [id number] - [address] [place] [address] - [facility] Vital Signs No data in the system Plan of Care No data in the system Procedures No data in the system Encounters Date Code Diagnosis Status (ICD10) - Z7901 CORRECTION CURRNT USE Active ANTICOAGULANTS Immunizations No data in the system Functional Status No data in the system Hospital Discharge Instructions No data in the system
--- OUTSIDE RECORDS SUMMARY | 2017-07-16 17:01 | External Medical Summary ---
:1930 Author Organization [facility] Care Team Providers Name Role Phone NIKOLAS ZAMBRANO MD Primary Care Provider [phone] Summary purpose CCDA Sent to [facility] Chief Complaint and Reason for Visit No [...] Relevant diagnostic tests and/or laboratory data RESULTS [facility] [id number]:14:00 Result Normal Range Units INR 2.18 Protime H 22.5 9.0-11.0 Sec History of procedures Procedure Code Code Type Description Date Performed Performing Physician 93711 CPT-4 PROTHROMBIN TIME 12-20-2015 NIKOLAS ZAMBRANO 19403 CPT-4 ROUTINE VENIPUNCTURE 12-20-2015 NIKOLAS ZAMBRANO Functional status No functional or [...]
--- OUTSIDE RECORDS SUMMARY | 2017-07-16 17:02 | External Medical Summary | Continuity of Care Document ---
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 12/27/2015 Kai ZAMBRANO MD Z51.81 Encounter for NIKOLAS R therapeutic drug level monitoring 12/27/2015 Kai ZAMBRANO MD 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 01/10/2016 Kai ZAMBRANO MD Z51.81 Encounter for NIKOLAS R therapeutic drug level monitoring 01/10/2016 Kai ZAMBRANO MD Z79.01 longterm (current) NIKOLAS R use of anticoagulants 01/24/2016 Kai ZAMBRANO MD Z51.81 Encounter for NIKOLAS R therapeutic drug level monitoring 01/24/2016 Kai ZAMBRANO MD 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 02/09/2016 Kai ZAMBRANO MD Z51.81 Encounter for NIKOLAS R therapeutic drug level monitoring 02/09/2016 Kai ZAMBRANO MD 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 03/06/2016 Kai ZAMBRANO MD Z51.81 Encounter for NIKOLAS R therapeutic drug level monitoring 03/06/2016 Kai ZAMBRANO MD 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 04/21/2016 NIKOLAS ZAMBRANO P V58.61 LONG-TERM (CURRENT) USE OF ANTICOAGULANTS 04/21/2016 NIKOLAS ZAMBRANO S V58.83 ENCOUNTER FOR THERAPEUTIC DRUG MONITORING 04/21/2016 NIKOLAS ZAMBRANO S Z51.81 ENCOUNTER FOR THERAPEUTIC DRUG LEVEL MONITORING 04/21/2016 NIKOLAS ZAMBRANO P 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 04/21/2016 P 427.31 ATRIAL FIBRILLATION 04/21/2016 P I48.2 CHRONIC ATRIAL FIBRILLATION 04/21/2016 S V58.61 LONG-TERM (CURRENT) USE OF ANTICOAGULANTS 04/21/2016 S V58.83 ENCOUNTER FOR THERAPEUTIC DRUG MONITORING 04/21/2016 S Z51.81 ENCOUNTER FOR THERAPEUTIC DRUG LEVEL MONITORING 04/21/2016 S 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 04/28/2016 P V58.61 LONG-TERM (CURRENT) USE OF ANTICOAGULANTS 04/28/2016 S V58.83 ENCOUNTER FOR THERAPEUTIC DRUG MONITORING 04/28/2016 S Z51.81 ENCOUNTER FOR THERAPEUTIC DRUG LEVEL MONITORING 04/28/2016 P Z79.01 SENIOR LIVING (CURRENT) USE OF ANTICOAGULANTS 05/15/2016 S Z51.81 ENCOUNTER FOR THERAPEUTIC DRUG LEVEL MONITORING 05/15/2016 P Z79.01 SENIOR LIVING (CURRENT) USE OF ANTICOAGULANTS 05/31/2016 P I48.2 CHRONIC ATRIAL FIBRILLATION 05/31/2016 S Z51.81 ENCOUNTER FOR THERAPEUTIC DRUG LEVEL MONITORING 05/31/2016 S Z79.01 SENIOR LIVING (CURRENT) USE OF ANTICOAGULANTS 06/01/2016 P I48.2 CHRONIC ATRIAL FIBRILLATION 06/01/2016 S Z12.5 ENCOUNTER FOR SCREENING FOR MALIGNANT NEOPLASM OF PROSTATE 06/01/2016 S Z13.29 ENCOUNTER FOR SCREENING FOR OTHER SUSPECTED ENDOCRINE DISORDER 06/01/2016 S Z51.81 ENCOUNTER FOR THERAPEUTIC DRUG LEVEL MONITORING 06/01/2016 S 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 06/02/2016 S E78.5 HYPERLIPIDEMIA, UNSPECIFIED 06/09/2016 NIKOLAS ZAMBRANO S Z51.81 ENCOUNTER FOR THERAPEUTIC DRUG LEVEL MONITORING 06/09/2016 NIKOLAS ZAMBRANO P Z79.01 SENIOR LIVING (CURRENT) USE OF ANTICOAGULANTS 06/13/2016 P I48.2 CHRONIC ATRIAL FIBRILLATION 06/13/2016 S Z51.81 ENCOUNTER FOR THERAPEUTIC DRUG LEVEL MONITORING 06/13/2016 S Z79.01 SENIOR LIVING (CURRENT) USE OF ANTICOAGULANTS 06/20/2016 P I48.2 CHRONIC ATRIAL FIBRILLATION 06/20/2016 S Z51.81 ENCOUNTER FOR THERAPEUTIC DRUG LEVEL MONITORING 06/20/2016 S 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 07/04/2016 P I48.2 CHRONIC ATRIAL FIBRILLATION 07/04/2016 S Z51.81 ENCOUNTER FOR THERAPEUTIC DRUG LEVEL MONITORING 07/04/2016 S Z79.01 SENIOR LIVING (CURRENT) USE OF ANTICOAGULANTS 07/18/2016 P I48.2 CHRONIC ATRIAL FIBRILLATION 07/18/2016 S Z51.81 ENCOUNTER FOR THERAPEUTIC DRUG LEVEL MONITORING 07/18/2016 S Z79.01 SENIOR LIVING (CURRENT) USE OF ANTICOAGULANTS 08/12/2016 S Z51.81 ENCOUNTER FOR THERAPEUTIC DRUG LEVEL MONITORING 08/12/2016 P Z79.01 SENIOR LIVING (CURRENT) USE OF ANTICOAGULANTS 09/07/2016 P I48.2 CHRONIC ATRIAL FIBRILLATION 09/07/2016 S Z51.81 ENCOUNTER FOR THERAPEUTIC DRUG LEVEL MONITORING 09/07/2016 S 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 10/03/2016 S Z51.81 ENCOUNTER FOR THERAPEUTIC DRUG LEVEL MONITORING 10/03/2016 P Z79.01 SENIOR LIVING (CURRENT) USE OF ANTICOAGULANTS 10/10/2016 YESENIA SABA P I48.2 CHRONIC ATRIAL FIBRILLATION 11/01/2016 S Z51.81 ENCOUNTER FOR THERAPEUTIC DRUG LEVEL MONITORING 11/01/2016 P 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 12/27/2016 NIKOLAS ZAMBRANO S Z51.81 ENCOUNTER FOR THERAPEUTIC DRUG LEVEL MONITORING 12/27/2016 NIKOLAS ZAMBRANO P 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 01/03/2017 P I48.2 CHRONIC ATRIAL FIBRILLATION 01/03/2017 S Z51.81 ENCOUNTER FOR THERAPEUTIC DRUG LEVEL MONITORING 01/03/2017 S 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 01/10/2017 P 427.31 ATRIAL FIBRILLATION 01/10/2017 P I48.2 CHRONIC ATRIAL FIBRILLATION 01/10/2017 S V58.61 LONG-TERM (CURRENT) USE OF ANTICOAGULANTS 01/10/2017 S 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 01/25/2017 P I48.2 CHRONIC ATRIAL FIBRILLATION 01/25/2017 S Z51.81 ENCOUNTER FOR THERAPEUTIC DRUG LEVEL MONITORING 01/25/2017 S 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 02/07/2017 S Z51.81 ENCOUNTER FOR THERAPEUTIC DRUG LEVEL MONITORING 02/07/2017 P Z79.01 SENIOR LIVING (CURRENT) USE OF ANTICOAGULANTS 02/21/2017 P I48.2 CHRONIC ATRIAL FIBRILLATION 03/07/2017 S Z51.81 ENCOUNTER FOR THERAPEUTIC DRUG LEVEL MONITORING 03/07/2017 P Z79.01 SENIOR LIVING (CURRENT) USE OF ANTICOAGULANTS 04/03/2017 S Z51.81 ENCOUNTER FOR THERAPEUTIC DRUG LEVEL MONITORING 04/03/2017 P 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 04/12/2017 S I10 ESSENTIAL (PRIMARY) HYPERTENSION 04/12/2017 S Z51.81 ENCOUNTER FOR THERAPEUTIC DRUG LEVEL MONITORING 04/12/2017 P 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 04/19/2017 S Z51.81 ENCOUNTER FOR THERAPEUTIC DRUG LEVEL MONITORING 04/19/2017 P Z79.01 SENIOR LIVING (CURRENT) USE OF ANTICOAGULANTS 04/27/2017 S Z51.81 ENCOUNTER FOR THERAPEUTIC DRUG LEVEL MONITORING 04/27/2017 P Z79.01 SENIOR LIVING (CURRENT) USE OF ANTICOAGULANTS 05/04/2017 S Z51.81 ENCOUNTER FOR THERAPEUTIC DRUG LEVEL MONITORING 05/04/2017 P Z79.01 SENIOR LIVING (CURRENT) USE OF ANTICOAGULANTS 05/10/2017 S Z51.81 ENCOUNTER FOR THERAPEUTIC DRUG LEVEL MONITORING 05/10/2017 P 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 Procedures Code Description Performed By Performed On KENYA BHAGAT, NIKOLAS R 12/13/2015 [id number] ROUTINE VENIPUNCTURE KENYA BHAGAT, NIKOLAS R 12/13/2015 [id number] PROTHROMBIN TIME KENYA BHAGAT, NIKOLAS R 12/20/2015 44752 ROUTINE VENIPUNCTURE KENYA BHAGAT, NIKOLAS R 12/20/2015 30603 PROTHROMBIN TIME KENYA BHAGAT, NIKOLAS R 12/27/2015 01511 ROUTINE VENIPUNCTURE KENYA BHAGAT, NIKOLAS R 12/27/2015 36779 PROTHROMBIN TIME KENYA BHAGAT, NIKOLAS R 01/10/2016 85260 ROUTINE VENIPUNCTURE KENYA BHAGAT, NIKOLAS R 01/10/2016 12241 PROTHROMBIN TIME KENYA BHAGAT, NIKOLAS R 01/24/2016 90724 ROUTINE VENIPUNCTURE KENYA BHAGAT, NIKOLAS R 01/24/2016 41840 PROTHROMBIN TIME KENYA BHAGAT, NIKOLAS R 02/09/2016 55137 ROUTINE VENIPUNCTURE KENYA BHAGAT, NIKOLAS R 02/09/2016 39199 PROTHROMBIN TIME KENYA BHAGAT, NIKOLAS R 03/06/2016 07033 ROUTINE VENIPUNCTURE KENYA BHAGAT, NIKOLAS R 03/06/2016 37431 PROTHROMBIN TIME Results Test Result Range Protime - 12/13/15 14:52 Protime 21.4 SEC 9.0-11.0 INR 2.08 Protime - 12/20/15 15:45 Protime 22.5 SEC 9.0-11.0 INR 2.18 Protime - 12/27/15 15:25 Protime 18.8 SEC 9.0-11.0 INR 1.84 Protime - 01/10/16 15:15 Protime 28.9 SEC 9.0-11.0 INR 2.77 Protime - 01/24/16 15:18 Protime 30.4 SEC 9.0-11.0 INR 2.90 Protime - 02/09/16 16:18 Protime 22.2 SEC 9.0-11.0 INR 2.20 Protime - 03/06/16 15:02 Protime 26.5 SEC 9.0-11.0 INR 2.63 Encounters ACCT No. Visit Discharge Status Pt. Type Provider Facility Loc./Unit Complaint Date/Time [id number] 03/06/2016 03/06/2016 DIS Outpatient [facility] 14:20:00 14:20:00 NIKOLAS BHAGAT [id number] 02/09/2016 02/09/2016 DIS Outpatient [facility] 15:42:00 15:42:00 NIKOLAS BHAGAT [id number] 01/24/2016 01/24/2016 DIS Outpatient [facility] 14:22:00 14:22:00 NIKOLAS BHAGAT [id number] 01/10/2016 01/10/2016 DIS Outpatient [facility] 14:24:00 14:24:00 NIKOLAS BHAGAT [id number] 12/27/2015 12/27/2015 DIS Outpatient [facility] 14:08:00 14:08:00 NIKOLAS BHAGAT [id number] 12/20/2015 12/20/2015 DIS Outpatient [facility] 15:06:00 15:06:00 NIKOLAS BHAGAT [id number] 12/13/2015 12/13/2015 DIS Outpatient [facility] 14:23:00 14:23:00 NIKOLAS BHAGAT [id number] 07/11/2017 ACT Unknown [facility], 17:16:00 NIKOLAS [id number] 05/02/2017 Document 00:29:00 Registratio n [id number] 04/25/2017 Document 00:36:00 Registratio andrew [id number] 04/18/2017 Document 00:14:00 Registratio andrew [id number] 04/11/2017 Document 03:29:00 Registratio n [id number] 04/04/2017 Document 00:56:00 Registratio n [id number] 03/28/2017 Document 00:26:00 Registratio n [id number] 02/28/2017 Document 00:24:00 Registratio n [id number] 02/14/2017 Document 01:09:00 Registratio n [id number] 01/31/2017 Document 00:53:00 Registratio n [id number] 01/17/2017 Document 00:41:00 Registratio n [id number] 01/03/2017 Document 00:51:00 Registratio n [id number] 12/27/2016 Document 00:17:00 Registratio n [id number] 12/20/2016 ACT Unknown KENYA, 00:25:00 NIKOLAS [id number] 10/25/2016 Document 00:52:00 Registratio n [id number] 10/04/2016 ACT Unknown SABA, 00:56:00 YESENIA [id number] 09/27/2016 Document 01:11:00 Registratio n [id number] 08/30/2016 Document 02:00:00 Registratio n [id number] 08/02/2016 Document 02:09:00 Registratio n [id number] 07/05/2016 Document 00:25:00 Registratio n [id number] 06/21/2016 Document 00:35:00 Registratio n [id number] 06/07/2016 Document 00:40:00 Registratio n [id number] 05/31/2016 Document 01:04:00 Registratio n [id number] 05/26/2016 ACT Unknown KENYA, 10:14:00 NIKOLAS [id number] 05/24/2016 Document 00:15:00 Registratio n [id number] 05/10/2016 Document 00:54:00 Registratio n [id number] 04/26/2016 Document 01:06:00 Registratio n [id number] 04/19/2016 ACT Unknown KENYA, 07:31:00 NIKOLAS [id number] 04/12/2016 Document 00:49:00 Registratio n [id number] 04/05/2016 Document 00:54:00 Registratio n [id number] 08/26/2015 ACT Unknown RAMON, Z79.899 14:26:00 MARCELO Cook
--- OUTSIDE RECORDS SUMMARY | 2017-07-16 17:02 | External Medical Summary ---
:1930 Author Organization [facility] Care Team Providers Name Role Phone NIKOLAS ZAMBRANO MD Primary Care Provider [phone] Summary purpose CCDA Sent to [facility] Chief Complaint and Reason for Visit [...] Relevant diagnostic tests and/or laboratory data RESULTS [facility] [id number]:30:00 Result Normal Range Units INR 2.77 Protime H 28.9 9.0-11.0 Sec History of procedures Procedure Code Code Type Description Date Performed Performing Physician 79912 CPT-4 PROTHROMBIN TIME 01-10-2016 NIKOLAS ZAMBRANO 64906 CPT-4 ROUTINE VENIPUNCTURE 01-10-2016 NIKOLAS ZAMBRANO Functional status No functional or [...]
--- OUTSIDE RECORDS SUMMARY | 2017-07-16 17:02 | External Medical Summary | Continuity of Care Document ---
:1930 Author Organization [facility] Care Team Providers Name Role Phone [facility] Admitting Physician NIKOLAS ZAMBRANO Attending Physician Hospital Admission Diagnosis No data in the System Social History Element Code Description Smoking Start Date End Date Description Status Code System Smoking Status [id number] Unknown if ever SNOMED-CT smoked Problems No data in the system Medications SNOMED CT Description [id number] Drug Treatment Unknown Allergies No Allergy Data in the System Results Laboratory Results Order: Protime With INRLegend: D=Delta, H= High, L=Low, HH=Critical High, LL=Critical Low, AA=Critical Alpha-Numeric, C= Corrected, A=Abnormal LOINC Test Result Flag Range Units Date 1PT 25.9 H 9.1-11.6 Seconds 01/17/2017 07:17 41637-2 1INR p 2.48 H 0.90-1.15 01/17/2017 heparin 07:17 adsorption PPP [id number] [address] [place] [address] - [facility] NAHUN Vital Signs No data in the system Plan of Care No data in the system Procedures No data in the system Encounters No data in the system Immunizations No data in the system Functional Status No data in the system Hospital Discharge Instructions No data in the system
--- OUTSIDE RECORDS SUMMARY | 2017-07-16 17:02 | External Medical Summary | Continuity of Care Document ---
:[address] [facility] Care Team Providers Name Role Phone ALISASENIOR STEWART SAN Admitting Physician NIKOLAS ZAMBRANO Attending Physician Hospital Admission Diagnosis Code Admission Diagnosis Date MCC (CURRENT) USE OF ANTICOAGULANTS Social History Element Code Description Smoking Start Date End Date Description Status Code System Smoking Status [id number] Unknown if ever SNOMED-CT smoked Problems No data in the system Medications SNOMED CT Description [id number] Drug Treatment Unknown Allergies No Allergy Data in the System Results Laboratory Results Order: Basic Metabolic PanelLegend: D=Delta , H=High, L=Low, HH=Critical High, LL=Critical Low, AA=Critical Alpha-Numeric, C =Corrected, A=Abnormal LOINC Test Result Flag Range Units Date 2345-05 151 H 70-105 mg/dl 04/04/2017 1Glucose 05:35 SerPl-mCnc 3094-0 15 7-25 mg/dl 04/04/2017 1BUN 05:35 SerPl-mCnc 2160-0 1.2 0.6-1.3 mg/dl 04/04/2017 1Creat 05:35 SerPl-mCnc 66616-6 13 13-39 04/04/2017 1Creat/Urea 05:35 nit SerPl 2951-2 138 135-145 mmol/L 04/04/2017 1Sodium 05:35 SerPl-sCnc 66510-6 4.0 3.5-5.1 mmol/L 04/04/2017 1Potassium 05:35 SerPl-mCnc 2075-0 104 98-107 mmol/l 04/04/2017 1Chloride 05:35 SerPl-sCnc 8-9 26 21-31 mmol/l 04/04/2017 1CO2 05:35 [facility] 19074-1 12 9-16 mmol/L 04/04/2017 1Anion Gap 05:35 [facility] 2692-2 290 277-298 mOsm/kg 04/04/2017 1Osmolality 05:35 [facility] 76637-4 8.8 8.2-10.0 mg/dl 04/04/2017 1Calcium 05:35 [facility] 59 L 60-116 GFRunits 04/04/2017 1GFR 05:35 [facility]forming [id number] [address] [place] [address] NAHUN Order: Protime With INRLegend: D=Delta, H=High, L=Low, HH=Critical High, LL= Critical Low, AA=Critical Alpha-Numeric, C=Corrected, A=Abnormal LOINC Test Result Flag Range Units Date 1PT 20.7 H 9.1-11.6 Seconds 04/04/2017 05:35 80028-3 1INR p 1.98 H 0.90-1.15 04/04/2017 heparin 05:35 adsorption PPP Performing Lab Footnotes:[facility] [id number] - [address] [place] [address] NAHUNB Vital Signs No data in the system Plan of Care No data in the system Procedures No data in the system Encounters Date Code Diagnosis Status (ICD10) - Z7901 MCC CURRNT USE Active ANTICOAGULANTS Immunizations No data in the system Functional Status No data in the system Hospital Discharge Instructions No data in the system
--- OUTSIDE RECORDS SUMMARY | 2017-07-16 17:02 | External Medical Summary | Continuity of Care Document ---
:1930 Author Organization [facility] Care Team Providers Name Role Phone [facility]AN [facility] Admitting Physician NIKOLAS ZAMBRANO Attending Physician Hospital Admission Diagnosis Code Admission Diagnosis Date SENIOR LIVING (CURRENT) USE OF ANTICOAGULANTS Social History Element Code Description Smoking Start Date End Date Description Status Code System Smoking Status [id number] Unknown if ever SNOMED-CT smoked Problems No data in the system Medications SNOMED CT Description 861053260 Drug Treatment Unknown Allergies No Allergy Data in the System Results Laboratory Results Order: Protime With INRLegend: D=Delta, H= High, L=Low, HH=Critical High, LL=Critical Low, AA=Critical Alpha-Numeric, C= Corrected, A=Abnormal LOINC Test Result Flag Range Units Date 1PT 23.5 H 9.1-11.6 Seconds 04/25/2017 05:50 17742-9 1INR p 2.26 H 0.90-1.15 04/25/2017 heparin 05:50 adsorption PPP [id number] [address] [place] [address] - [facility] Vital Signs No data in [...]
--- OUTSIDE RECORDS SUMMARY | 2017-07-16 17:02 | External Medical Summary | Continuity of Care Document ---
:1930 Author Organization [facility] Care Team Providers Name Role Phone SENIOR STEWART PRADO Admitting Physician NIKOLAS ZAMBRANO Attending Physician Hospital Admission Diagnosis Code Admission Diagnosis Date RESIDENTIAL (CURRENT) USE OF ANTICOAGULANTS Social History Element Code Description Smoking Start Date End Date Description Status Code System Smoking Status [id number] Unknown if ever SNOMED-CT smoked Problems No data in the system Medications SNOMED CT Description [id number] Drug Treatment Unknown Allergies No Allergy Data in the System Results Laboratory Results Order: Protime With INRLegend: D=Delta, H= High, L=Low, HH=Critical High, LL=Critical Low, AA=Critical Alpha-Numeric, C= Corrected, A=Abnormal LOINC Test Result Flag Range Units Date 1PT 26.4 H 9.1-11.6 Seconds 09/27/2016 07:35 39884-6 1INR p 2.51 H 0.90-1.15 09/27/2016 heparin 07:35 adsorption PPP Performing [id number] - [address] [place] [address] - [facility] Vital Signs No data in the system Plan of Care No data in the system Procedures No data in the system Encounters Date Code Diagnosis Status (ICD10) - Z7901 RESIDENTIAL CURRNT USE Active ANTICOAGULANTS Immunizations No data in the system Functional Status No data in the system Hospital Discharge Instructions No data in the system
--- OUTSIDE RECORDS SUMMARY | 2017-07-16 17:02 | External Medical Summary | Continuity of Care Document ---
:1930 Author Organization [facility] Care Team Providers Name Role Phone JOHAN [facility] Admitting Physician NIKOLAS ZAMBRANO Attending Physician Hospital Admission Diagnosis Code Admission Diagnosis Date ASSISTED (CURRENT) USE OF ANTICOAGULANTS Social History Element Code Description Smoking Start Date End Date Description Status Code System Smoking Status [id number] Unknown if ever SNOMED-CT smoked Problems No data in the system Medications SNOMED CT Description 475013663 Drug Treatment Unknown Allergies No Allergy Data in the System Results Laboratory Results Order: Protime With INRLegend: D=Delta, H= High, L=Low, HH=Critical High, LL=Critical Low, AA=Critical Alpha-Numeric, C= Corrected, A=Abnormal LOINC Test Result Flag Range Units Date 1PT 20.3 H 9.1-11.6 Seconds 03/28/2017 05:40 51660-3 1INR p 1.95 H 0.90-1.15 03/28/2017 heparin 05:40 adsorption PPP [facility]forming [id number] [address] [place] [address] - [facility] Vital Signs No data in the system Plan of Care No data in the system Procedures No data in the system Encounters Date Code Diagnosis Status (ICD10) - Z7901 ASSISTED CURRNT USE Active ANTICOAGULANTS Immunizations No data in the system Functional Status No data in the system Hospital Discharge Instructions No data in the system
--- OUTSIDE RECORDS SUMMARY | 2017-07-16 17:02 | External Medical Summary | Continuity of Care Document ---
:1930 Author Organization [facility] Care Team Providers Name Role Phone SENIOR STEWART PRADO Admitting Physician NIKOLAS ZAMBRANO Attending Physician Hospital Admission Diagnosis Code Admission Diagnosis Date [id number] Chronic atrial fibrillation Social History Element Code Description Smoking Start Date End Date Description Status Code System Smoking Status 184559159 Unknown if ever SNOMED-CT smoked Problems No data in the system Medications SNOMED CT Description 173975329 Drug Treatment Unknown Allergies No Allergy Data in the System Results Laboratory Results Order: Protime With INRLegend: D=Delta, H= High, L=Low, HH=Critical High, LL=Critical Low, AA=Critical Alpha-Numeric, C= Corrected, A=Abnormal LOINC Test Result Flag Range Units Date 1PT 38.7 H 9.1-11.6 Seconds 05/24/2016 05:05 83105-4 1INR p 3.66 H 0.90-1.15 05/24/2016 heparin 05:05 adsorption PPP Performing Lab [facility] [id number] - [address] [place], [place] [address]BWCCARLOS SWARTZ Vital Signs No data in the system Plan of Care No data in the system Procedures No data in the system Encounters Date Code Diagnosis Status (ICD10) - I482 CHRONIC ATRIAL FIBRILLATION Active Immunizations No data in the system Functional Status No data in the system Hospital Discharge Instructions No data in the system
--- OUTSIDE RECORDS SUMMARY | 2017-07-16 17:02 | External Medical Summary | Continuity of Care Document ---
:1930 Author Organization [facility] Care Team Providers Name Role Phone SENIOR JOHAN LIVING Admitting Physician YESENIA SABA Attending Physician Hospital Admission Diagnosis Code Admission Diagnosis Date [id number] Chronic atrial fibrillation Social History Element Code Description Smoking Start Date End Date Description Status Code System Smoking Status [id number] Unknown if ever SNOMED-CT smoked Problems No data in the system Medications SNOMED CT Description [id number] Drug Treatment Unknown Allergies No Allergy Data in the System Results Laboratory Results Order: Bilirubin DirectLegend: D=Delta, H= High, L=Low, HH=Critical High, LL=Critical Low, AA=Critical Alpha-Numeric, C= Corrected, A=Abnormal LOINC Test Result Flag Range Units Date 1968-05 0.08 0.03-0.18 mg/dl 10/04/2016 1Bilirub 05:30 Direct SerPl-nc [facility]forming [facility] [id number] [address] [place] [address] - [facility] [place] Order: Comprehensive Metabolic PanelLegend: D=Delta, H=High, L=Low, HH= Critical High, LL=Critical Low, AA=Critical Alpha-Numeric, C=Corrected, A= Abnormal LOINC Test Result Flag Range Units Date 2345-05 135 H 70-105 mg/dl 10/04/2016 1Glucose 05:30 SerPl-mCnc 3094-0 18 7-25 mg/dl 10/04/2016 1BUN 05:30 SerPl-mCnc 2160-0 1.4 H 0.6-1.3 mg/dl 10/04/2016 1Creat 05:30 SerPl-mCnc 57023-3 13 13-39 10/04/2016 1Creat/Urea 05:30 nit SerPl 2951-2 138 135-145 mmol/L 10/04/2016 1Sodium 05:30 SerPl-sCnc 63972-1 3.8 3.5-5.1 mmol/L 10/04/2016 1Potassium 05:30 SerPl-mCnc 2075-0 104 98-107 mmol/l 10/04/2016 1Chloride 05:30 SerPl-sCnc 2028-9 27 21-31 mmol/l 10/04/2016 1CO2 05:30 SerPl-sCnc 56378-6 11 9-16 mmol/L 10/04/2016 1Anion Gap 05:30 SerPl-sCnc 2692-2 290 277-298 mOsm/kg 10/04/2016 1Osmolality 05:30 SerPl 55438-3 8.6 8.2-10.0 mg/dl 10/04/2016 1Calcium 05:30 SerPl-mCnc 1742-6 35 7-52 IU/L 10/04/2016 1ALT 05:30 SerPl-cCnc 1920-8 37 13-39 IU/L 10/04/2016 1AST 05:30 SerPl-cCnc 1715-2 55 34-104 U/L 10/04/2016 1ACP 05:30 SerPl-cCnc 1975-2 0.6 0.3-1.0 mg/dl 10/04/2016 1Bilirub 05:30 SerPl-mCnc 2885-2 6.4 6.0-8.3 g/dL 10/04/2016 1Prot 05:30 SerPl-mCnc 1751-7 3.5 3.5-5.7 g/dl 10/04/2016 1Albumin 05:30 SerPl-mCnc 2336-6 2.9 2.3-3.2 g/dL 10/04/2016 1Globulin 05:30 Ser-mCnc 1759-0 1.2 1.2-2.0 10/04/2016 1Albumin/Marquita 05:30 b SerPl 49 L 60-116 GFRunits 10/04/2016 1GFR 05:30 Performing Lab Footnotes:[address] [place] [address] - [id number] - [address] [place], [place] [id number] [place] [address] ARLETTE Order: DigoxinLegend: D=Delta, H=High, L=Low, HH=Critical High, LL=Critical Low , AA=Critical Alpha-Numeric, C=Corrected, A=Abnormal LOINC Test Result Flag Range Units Date 0.7 L 0.9-2.0 ng/ml 10/04/2016 1Digoxin 05:30 1Reference ValuesCongestive Heart Failure 0.8 - 2 ng/dlArrythmias 1.5 - 2.5 ng/dl Adults < 0.5 ng/dlToxic > 2.5 ng/dl Performing Lab Footnotes:[facility] [id number] - [address] [place], [place] [id number] [place] [address] ARLETTE Vital Signs No data in the system Plan of Care No data in the system Procedures No data in the system Encounters Date Code Diagnosis Status (ICD10) - I482 CHRONIC ATRIAL FIBRILLATION Active Immunizations No data in the system Functional Status No data in the system Hospital Discharge Instructions No data in the system
--- OUTSIDE RECORDS SUMMARY | 2017-07-16 17:02 | External Medical Summary | Continuity of Care Document ---
:1930 Author Organization [facility] Care Team Providers Name Role Phone SENIOR JOHAN LIVING Admitting Physician NIKOLAS ZAMBRANO Attending Physician Hospital Admission Diagnosis No data in the System Social History Element Code Description Smoking Start Date End Date Description Status Code System Smoking Status [id number] Unknown if ever SNOMED-CT smoked Problems No data in the system Medications SNOMED CT Description [id number] Drug Treatment Unknown Allergies No Allergy Data in the System Results Laboratory Results Order: Protime With INRLegend: D=Delta, H= High, L=Low, HH=Critical High, LL=Critical Low, AA=Critical Alpha-Numeric, C= Corrected, A=Abnormal LOINC Test Result Flag Range Units Date 1PT 21.6 H 9.1-11.6 Seconds 05/02/2017 05:45 48073-3 1INR p 2.07 H 0.90-1.15 05/02/2017 heparin 05:45 adsorption PPP Performing Lab Footnotes:[facility] [id number] - [address] [place] [address] - [facility] [place] Vital Signs No data in the system Plan of Care No data in the system Procedures No data in the system Encounters No data in the system Immunizations No data in the system Functional Status No data in the system Hospital Discharge Instructions No data in the system
--- OUTSIDE RECORDS SUMMARY | 2017-07-16 17:02 | External Medical Summary | Continuity of Care Document ---
:1930 Author Organization [facility] Care Team Providers Name Role Phone SENIOR JOHAN LIVING Admitting Physician NIKOLAS ZAMBRANO Attending Physician Hospital Admission Diagnosis No data in the System Social History Element Code Description Smoking Start Date End Date Description Status Code System Smoking Status [id number] Unknown if ever SNOMED-CT smoked Problems No data in the system Medications SNOMED CT Description 488766093 Drug Treatment Unknown Allergies No Allergy Data in the System Results Laboratory Results Order: Protime With INRLegend: D=Delta, H= High, L=Low, HH=Critical High, LL=Critical Low, AA=Critical Alpha-Numeric, C= Corrected, A=Abnormal LOINC Test Result Flag Range Units Date 1PT 29.1 H 9.1-11.6 Seconds 10/25/2016 05:35 62153-0 1INR p 2.81 H 0.90-1.15 10/25/2016 heparin 05:35 adsorption PPP Performing [facility] [id number] - [address] [place] [address] - [facility] [place] Vital Signs No data in the system Plan of Care No data in the system Procedures No data in the system Encounters No data in the system Immunizations No data in the system Functional Status No data in the system Hospital Discharge Instructions No data in the system
--- OUTSIDE RECORDS SUMMARY | 2017-07-16 17:02 | External Medical Summary | Continuity of Care Document ---
:1930 Author Organization [facility] Care Team Providers Name Role Phone SENIOR JOHAN LIVING Admitting Physician NIKOLAS ZAMBRANO Attending Physician Hospital Admission Diagnosis No data in the System Social History Element Code Description Smoking Start Date End Date Description Status Code System Smoking Status [id number] Unknown if ever SNOMED-CT smoked Problems No data in the system Medications SNOMED CT Description 910589709 Drug Treatment Unknown Allergies No Allergy Data in the System Results Laboratory Results Order: Protime With INRLegend: D=Delta, H= High, L=Low, HH=Critical High, LL=Critical Low, AA=Critical Alpha-Numeric, C= Corrected, A=Abnormal LOINC Test Result Flag Range Units Date 1PT 24.3 H 9.1-11.6 Seconds 02/28/2017 05:40 18652-8 1INR p 2.33 H 0.90-1.15 02/28/2017 heparin 05:40 adsorption PPP Performing [facility] Footnotes:[facility] [id number] - [address] [place] [address] - [facility] [place] Vital Signs No data in the system Plan of Care No data in the system Procedures No data in the system Encounters No data in the system Immunizations No data in the system Functional Status No data in the system Hospital Discharge Instructions No data in the system
--- OUTSIDE RECORDS SUMMARY | 2017-07-16 17:02 | External Medical Summary | Continuity of Care Document ---
:1930 Author Organization [facility] Care Team Providers Name Role Phone SENIOR STEWART PRADO Admitting Physician YESENIA SABA Attending Physician Hospital Admission Diagnosis No data in the System Social History Element Code Description Smoking Start Date End Date Description Status Code System Smoking Status [id number] Unknown if ever SNOMED-CT smoked Problems No data in the system Medications SNOMED CT Description 733868766 Drug Treatment Unknown Allergies No Allergy Data in the System Results Laboratory Results Order: Bilirubin DirectLegend: D=Delta, H= High, L=Low, HH=Critical High, LL=Critical Low, AA=Critical Alpha-Numeric, C= Corrected, A=Abnormal LOINC Test Result Flag Range Units Date 1968-05 0.08 0.03-0.18 mg/dl 10/04/2016 1Bilirub 05:30 Direct [facility] Performing Lab Footnotes[facility] [id number] - [address] [place] [address] - [facility] [place] Order: Comprehensive Metabolic PanelLegend: D=Delta, H=High, L=Low, HH= Critical High, LL=Critical Low, AA=Critical Alpha-Numeric, C=Corrected, A= Abnormal LOINC Test Result Flag Range Units Date 2345-05 135 H 70-105 mg/dl 10/04/2016 1Glucose 05:30 SerPl-mCnc 3094-0 18 7-25 mg/dl 10/04/2016 1BUN 05:30 SerPl-mCnc 2160-0 1.4 H 0.6-1.3 mg/dl 10/04/2016 1Creat 05:30 SerPl-mCnc 33748-9 13 13-39 10/04/2016 1Creat/Urea 05:30 nit SerPl 2951-2 138 135-145 mmol/L 10/04/2016 1Sodium 05:30 SerPl-sCnc 93347-5 3.8 3.5-5.1 mmol/L 10/04/2016 1Potassium 05:30 SerPl-mCnc 2075-0 104 98-107 mmol/l 10/04/2016 1Chloride 05:30 SerPl-sCnc 2028-9 27 21-31 mmol/l 10/04/2016 1CO2 05:30 SerPl-sCnc 54859-9 11 9-16 mmol/L 10/04/2016 1Anion Gap 05:30 SerPl-sCnc 2692-2 290 277-298 mOsm/kg 10/04/2016 1Osmolality 05:30 SerPl 10758-1 8.6 8.2-10.0 mg/dl 10/04/2016 1Calcium 05:30 SerPl-mCnc [...] 60-116 GFRunits 10/04/2016 1GFR 05:30 Performing Lab Footnotes:[address] [place] [address] - [id number] - [address] [place], [place] [phone] [place] [address] [place]LETTE Order: DigoxinLegend: D=Delta, H=High, L=Low, HH=Critical High, LL=Critical Low , AA=Critical Alpha-Numeric, C=Corrected, A=Abnormal LOINC Test Result Flag Range Units Date 0.7 L 0.9-2.0 ng/ml 10/04/2016 1Digoxin 05:30 1Reference ValuesCongestive Heart Failure 0.8 - 2 ng/dlArrythmias 1.5 - 2.5 ng/dl Adults < 0.5 ng/dlToxic > 2.5 ng/dl Performing Lab Footnotes:[facility] [id number] - [address] [place], [place] [phone] [place] [address] [place]LETTE Vital Signs No data in the system Plan of Care No data in the system Procedures No data in the system Encounters No data in the system Immunizations No data in the system Functional Status No data in the system Hospital Discharge Instructions No data in the system
--- OUTSIDE RECORDS SUMMARY | 2017-07-16 17:02 | External Medical Summary | Continuity of Care Document ---
:1930 Author Organization [facility] Care Team Providers Name Role Phone NIKOLAS ZAMBRANO Admitting Physician NIKOLAS ZAMBRANO Attending Physician Hospital Admission Diagnosis Code Admission Diagnosis Date JOB CAPTAIN (CURRENT) USE OF ANTICOAGULANTS Social History Element Code Description Smoking Start Date End Date Description Status Code System Smoking Status [id number] Never smoker SNOMED-CT Problems No data in the system Medications SNOMED CT Description [id number] Drug Treatment Unknown Allergies No Allergy Data in the System Results Laboratory Results Order: Protime With INRLegend: D=Delta, H= High, L=Low, HH=Critical High, LL=Critical Low, AA=Critical Alpha-Numeric, C= Corrected, A=Abnormal LOINC Test Result Flag Range Units Date 1PT 18.4 H 9.1-11.6 Seconds 05/26/2016 10:20 52669-4 1INR p 1.77 H 0.90-1.15 05/26/2016 heparin 10:20 adsorption PPP Performing Lab Footnotes:[facility] - [id number] - [address] [place], [place] [address]FJXCARLOS SWARTZ Vital Signs No data in the system Plan of Care No data in the system Procedures No data in the system Encounters Date Code Diagnosis Status (ICD10) - Z7901 JOB CAPTAIN CURRNT USE Active ANTICOAGULANTS Immunizations No data in the system Functional Status No data in the system Hospital Discharge Instructions No data in the system
--- OUTSIDE RECORDS SUMMARY | 2017-07-16 17:02 | External Medical Summary ---
:1930 Author Organization [facility] Care Team Providers Name Role Phone NIKOLAS ZAMBRANO MD Primary Care Provider [phone] Summary purpose CCDA Sent to [facility] Chief Complaint and Reason for [...] Relevant diagnostic tests and/or laboratory data RESULTS [facility] [id number]:00 Result Normal Range Units INR 2.08 Protime H 21.4 9.0-11.0 Sec History of procedures Procedure Code Code Type Description Date Performed Performing Physician 52643 CPT-4 PROTHROMBIN TIME 12-13-2015 NIKOLAS ZAMBRANO 41121 CPT-4 ROUTINE VENIPUNCTURE 12-13-2015 NIKOLAS ZAMBRANO Functional status No functional or [...]
--- OUTSIDE RECORDS SUMMARY | 2017-07-16 17:02 | External Medical Summary | Continuity of Care Document ---
:1930 Author Organization [facility] Care Team Providers Name Role Phone PAULSENIOR STEWART BREWSTER Admitting Physician NIKOLAS ZAMBRANO Attending Physician Hospital Admission Diagnosis Code Admission Diagnosis Date [id number] Chronic atrial fibrillation Social History Element Code Description Smoking Start Date End Date Description Status Code System Smoking Status [id number] Unknown if ever SNOMED-CT smoked Problems No data in the system Medications SNOMED CT Description 532197654 Drug Treatment Unknown Allergies No Allergy Data in the System Results Laboratory Results Order: Protime With INRLegend: D=Delta, H= High, L=Low, HH=Critical High, LL=Critical Low, AA=Critical Alpha-Numeric, C= Corrected, A=Abnormal LOINC Test Result Flag Range Units Date 1PT 28.2 H 9.1-11.6 Seconds 01/03/2017 06:25 26405-9 1INR p 2.71 H 0.90-1.15 01/03/2017 heparin 06:25 adsorption PPP [facility]forming [id number] [address] [place] [address] - [facility] Vital Signs No data in the system Plan of Care No data in the system Procedures No data in the system Encounters Date Code Diagnosis Status (ICD10) - I482 CHRONIC ATRIAL FIBRILLATION Active Immunizations No data in the system Functional Status No data in the system Hospital Discharge Instructions No data in the system
--- OUTSIDE RECORDS SUMMARY | 2017-07-16 17:02 | External Medical Summary | Continuity of Care Document ---
:1930 Author Organization [facility] Care Team Providers Name Role Phone SENIOR STEWART PRADO Admitting Physician NIKOLAS ZAMBRANO Attending Physician Hospital Admission Diagnosis Code Admission Diagnosis Date [id number] Chronic atrial fibrillation Social History Element Code Description Smoking Start Date End Date Description Status Code System Smoking Status [id number] Unknown if ever SNOMED-CT smoked Problems No data in the system Medications SNOMED CT Description 912794761 Drug Treatment Unknown Allergies No Allergy Data in the System Results Laboratory Results Order: Protime With INRLegend: D=Delta, H= High, L=Low, HH=Critical High, LL=Critical Low, AA=Critical Alpha-Numeric, C= Corrected, A=Abnormal LOINC Test Result Flag Range Units Date 1PT 22.2 H 9.1-11.6 Seconds 05/31/2016 06:38 31287-9 1INR p 2.13 H 0.90-1.15 05/31/2016 heparin 06:38 adsorption PPP Performing Lab Footnotes:[facility] - [id number] - [address] [place], [place] [address]ONZCARLOS SWARTZ Vital Signs No data in the system Plan of Care No data in the system Procedures No data in the system Encounters Date Code Diagnosis Status (ICD10) - I482 CHRONIC ATRIAL FIBRILLATION Active Immunizations No data in the system Functional Status No data in the system Hospital Discharge Instructions No data in the system
--- OUTSIDE RECORDS SUMMARY | 2017-07-16 17:02 | External Medical Summary | Continuity of Care Document ---
:1930 Author Organization [facility] Care Team Providers Name Role Phone SENIOR TSEWART PRADO Admitting Physician NIKOLAS ZAMBRANO Attending Physician Hospital Admission Diagnosis Code Admission Diagnosis Date [id number] Chronic atrial fibrillation Social History Element Code Description Smoking Start Date End Date Description Status Code System Smoking Status [id number] Unknown if ever SNOMED-CT smoked Problems No data in the system Medications SNOMED CT Description 296254554 Drug Treatment Unknown Allergies No Allergy Data in the System Results Laboratory Results Order: Protime With INRLegend: D=Delta, H= High, L=Low, HH=Critical High, LL=Critical Low, AA=Critical Alpha-Numeric, C= Corrected, A=Abnormal LOINC Test Result Flag Range Units Date 1PT 29.0 H 9.1-11.6 Seconds 08/30/2016 07:05 29510-0 1INR p 2.76 H 0.90-1.15 08/30/2016 heparin 07:05 adsorption PPP [facility]forming [facility] [id number] - [address] [place] [address] - [facility] Vital Signs No data in the system Plan of Care No data in the system Procedures No data in the system Encounters Date Code Diagnosis Status (ICD10) - I482 CHRONIC ATRIAL FIBRILLATION Active Immunizations No data in the system Functional Status No data in the system Hospital Discharge Instructions No data in the system
--- OUTSIDE RECORDS SUMMARY | 2017-07-16 17:02 | External Medical Summary | Continuity of Care Document ---
:1930 Author Organization [facility] Care Team Providers Name Role Phone SENIOR JOHAN LIVING Admitting Physician NIKOLAS ZAMBRANO Attending Physician Hospital Admission Diagnosis No data in the System Social History Element Code Description Smoking Start Date End Date Description Status Code System Smoking Status [id number] Never smoker SNOMED-CT Problems No data in the system Medications SNOMED CT Description 142453108 Drug Treatment Unknown Allergies No Allergy Data in the System Results Laboratory Results Order: Protime With INRLegend: D=Delta, H= High, L=Low, HH=Critical High, LL=Critical Low, AA=Critical Alpha-Numeric, C= Corrected, A=Abnormal LOINC Test Result Flag Range Units Date 1PT 20.1 H 9.1-11.6 Seconds 04/11/2017 05:25 96915-3 1INR p 1.92 H 0.90-1.15 04/11/2017 heparin 05:25 adsorption PPP [facility]forming [facility]notes[facility] [id number] - [address] [place] [address] - [facility] [place] Vital Signs No data in the system Plan of Care No data in the system Procedures No data in the system Encounters No data in the system Immunizations No data in the system Functional Status No data in the system Hospital Discharge Instructions No data in the system
--- OUTSIDE RECORDS SUMMARY | 2017-07-16 17:02 | External Medical Summary | Continuity of Care Document ---
:1930 Author Organization [facility] Care Team Providers Name Role Phone SENIOR JOHAN LIVING Admitting Physician NIKOLAS ZAMBRANO Attending Physician Hospital Admission Diagnosis No data in the System Social History Element Code Description Smoking Start Date End Date Description Status Code System Smoking Status [id number] Unknown if ever SNOMED-CT smoked Problems No data in the system Medications SNOMED CT Description 432058355 Drug Treatment Unknown Allergies No Allergy Data in the System Results Laboratory Results Order: Protime With INRLegend: D=Delta, H= High, L=Low, HH=Critical High, LL=Critical Low, AA=Critical Alpha-Numeric, C= Corrected, A=Abnormal LOINC Test Result Flag Range Units Date 1PT 27.4 H 9.1-11.6 Seconds 01/31/2017 06:25 71748-1 1INR p 2.63 H 0.90-1.15 01/31/2017 heparin 06:25 adsorption PPP [facility]forming [facility] [id number] - [address] [place] [address] - [facility] NAHUN Vital Signs No data in the system Plan of Care No data in the system Procedures No data in the system Encounters No data in the system Immunizations No data in the system Functional Status No data in the system Hospital Discharge Instructions No data in the system
--- OUTSIDE RECORDS SUMMARY | 2017-07-16 17:02 | External Medical Summary | Continuity of Care Document ---
:1930 Author Organization [facility] Care Team Providers Name Role Phone SENIOR JOHAN LIVING Admitting Physician NIKOLAS ZAMBRANO Attending Physician Hospital Admission Diagnosis No data in the System Social History Element Code Description Smoking Start Date End Date Description Status Code System Smoking Status [id number] Unknown if ever SNOMED-CT smoked Problems No data in the system Medications SNOMED CT Description 043848511 Drug Treatment Unknown Allergies No Allergy Data in the System Results Laboratory Results Order: Protime With INRLegend: D=Delta, H= High, L=Low, HH=Critical High, LL=Critical Low, AA=Critical Alpha-Numeric, C= Corrected, A=Abnormal LOINC Test Result Flag Range Units Date 1PT 20.3 H 9.1-11.6 Seconds 03/28/2017 05:40 82385-0 1INR p 1.95 H 0.90-1.15 03/28/2017 heparin 05:40 adsorption PPP Performing Lab [facility] [id number] - [address] [place] [address] - [facility] NA[facility] Vital Signs No data in the system Plan of Care No data in the system Procedures No data in the system Encounters No data in the system Immunizations No data in the system Functional Status No data in the system Hospital Discharge Instructions No data in the system
--- OUTSIDE RECORDS SUMMARY | 2017-07-16 17:02 | External Medical Summary | Continuity of Care Document ---
:1930 Author Organization [facility] Care Team Providers Name Role Phone SENIOR STEWART PRADO Admitting Physician NIKOLAS ZAMBRANO Attending Physician Hospital Admission Diagnosis No data in the System Social History Element Code Description Smoking Start Date End Date Description Status Code System Smoking Status [id number] Unknown if ever SNOMED-CT smoked Problems No data in the system Medications SNOMED CT Description 548382126 Drug Treatment Unknown Allergies No Allergy Data in the System Results Laboratory Results Order: Protime With INRLegend: D=Delta, H= High, L=Low, HH=Critical High, LL=Critical Low, AA=Critical Alpha-Numeric, C= Corrected, A=Abnormal LOINC Test Result Flag Range Units Date 1PT 29.0 H 9.1-11.6 Seconds 08/30/2016 07:05 80756-6 1INR p 2.76 H 0.90-1.15 08/30/2016 heparin 07:05 adsorption PPP [facility]forming [facility] [id number] [facility] [address] [place] [address] - [facility] NAHUN Vital Signs No data in the system Plan of Care No data in the system Procedures No data in the system Encounters No data in the system Immunizations No data in the system Functional Status No data in the system Hospital Discharge Instructions No data in the system
--- OUTSIDE RECORDS SUMMARY | 2017-07-16 17:02 | External Medical Summary ---
:1930 Author Organization [facility] Care Team Providers Name Role Phone NIKOLAS ZAMBRANO MD Primary Care Provider [phone] Summary purpose CCDA Sent to [facility] Chief Complaint and Reason for Visit [...] Relevant diagnostic tests and/or laboratory data RESULTS [facility] [id number]:00 Result Normal Range Units INR 2.20 Protime H 22.2 9.0-11.0 Sec History of procedures Procedure Code Code Type Description Date Performed Performing Physician 27119 CPT-4 PROTHROMBIN TIME 02-09-2016 NIKOLAS ZAMBRANO 33288 CPT-4 ROUTINE VENIPUNCTURE 02-09-2016 NIKOLAS ZAMBRANO Functional status No functional or [...]
--- OUTSIDE RECORDS SUMMARY | 2017-07-16 17:02 | External Medical Summary | Continuity of Care Document ---
:1930 Author Organization [facility] Care Team Providers Name Role Phone SENIOR STEWART PRADO Admitting Physician NIKOLAS ZAMBRANO Attending Physician Hospital Admission Diagnosis No data in the System Social History Element Code Description Smoking Start Date End Date Description Status Code System Smoking Status [id number] Unknown if ever SNOMED-CT smoked Problems No data in the system Medications SNOMED CT Description [id number] Drug Treatment Unknown Allergies No Allergy Data in the System Results Laboratory Results Order: Protime With INRLegend: D=Delta, H= High, L=Low, HH=Critical High, LL=Critical Low, AA=Critical Alpha-Numeric, C= Corrected, A=Abnormal LOINC Test Result Flag Range Units Date 1PT 28.6 H 9.1-11.6 Seconds 08/02/2016 06:10 50156-2 1INR p 2.72 H 0.90-1.15 08/02/2016 heparin 06:10 adsorption PPP Performing Lab Footnotes:1[facility] - [id number] - [address] [place] [address] - [facility] Vital Signs No data in the system Plan of Care No data in the system Procedures No data in the system Encounters No data in the system Immunizations No data in the system Functional Status No data in the system Hospital Discharge Instructions No data in the system
--- OUTSIDE RECORDS SUMMARY | 2017-07-16 17:02 | External Medical Summary ---
:1930 Author Organization [facility] Care Team Providers Name Role Phone NIKOLAS ZAMBRANO MD Primary Care Provider [phone] Summary purpose CCDA Sent to [facility] Chief Complaint and Reason for Visit [...] Relevant diagnostic tests and/or laboratory data RESULTS [facility] [id number] Result Normal Range Units INR 1.84 Protime H 18.8 9.0-11.0 Sec History of procedures Procedure Code Code Type Description Date Performed Performing Physician 31642 CPT-4 PROTHROMBIN TIME 12-27-2015 NIKOLAS ZAMBRANO 74460 CPT-4 ROUTINE VENIPUNCTURE 12-27-2015 NIKOLAS ZAMBRANO Functional status No functional or [...]
--- NOTE | 2017-07-16 17:51 | Emergency Department Report ---
Medical Clearance HPI - General Chief complaint: Medical Clearance Stated complaint: Clearance for [facility] Time Seen by Provider: 07/16/17 16:42 Source: patient, old records reviewed Mode of arrival: ambulatory Limitations: altered mental status (Dementia) - History of Present Illness HPI Narrative: 86yo man presented to the ER for evaluation for [facility]. Pt has Alzheimer's dementia. Denies any PMHx. Denies any current complaint. Pts only concern is getting out of the ER so he and his family can travel home. MD complaint: medical clearance requested Reason for Medical Clearance: medical condition Traumatic Symptoms: denies traumatic injury Associated Symptoms: denies other symptoms Home medications: Home Medications Medication Instructions Recorded Confirmed Acetaminophen 500 mg PO QIDPRN PRN 07/16/17 07/16/17 Apixaban [Eliquis] 5 mg PO BID 07/16/17 07/16/17 Digoxin [Digoxin] 125 mcg PO DAILY 07/16/17 07/16/17 DiltiaZEM IR [Cardizem Ir] 30 mg PO BID 07/16/17 07/16/17 Donepezil [Aricept] 5 mg PO HS 07/16/17 07/16/17 Lactobacillus Acidophilus 1 each PO DAILY 07/16/17 07/16/17 [Acidophilus] Metformin [Glucophage] 500 mg PO DAILY 07/16/17 07/16/17 Quetiapine [Seroquel] 25 mg PO DAILY 07/16/17 07/16/17 Review of Systems All systems: reviewed and negative COUNTS INCLUDE 234 BEDS AT THE [facility] Medical History Updates: Alzheimer's dementia. Cardiac arrhythmia. HTN. DM - Social History Smoking status: Unknown if ever smoked Physical Exam - Limitations Limitations: altered mental status (Alzheimer's dementia) - General General appearance: alert, in no apparent distress, obese - Normal Exams: Head:: Normocephalic without trauma Eyes:: Pupils are PERRLA w/ EOMI, No scleral icterus, irritation, or foreign bodies noted ENMT:: No facial trauma, nasal exudates, pharyngeal erythema, or exudates are noted Neck:: Full range of motion, without adenopathy Chest/Respirations:: Clear all burks, with good airflow, and symmetry bilaterally Cardiovascular:: Regular rate and rhythm, without murmur or gallop Abdomen:: Bowel sounds positive, soft, non-tender, non-distended, no hepatosplenomegaly Lymphatic:: No lymphadenopathy Musculoskeletal:: No tenderness, or deformity noted Integumentary:: No rashes, hives, or bruising noted Neurological:: Patient is alert, and oriented, cranial nerves, motor/sensory/ cerebellar, exams w/o gross deficits Psychiatric:: Patient exhibits, appropriate attention Course Vital Signs Temperature 96.6 F L 07/16/17 16:35 Pulse Rate 86 07/16/17 16:35 Respiratory Rate 18 07/16/17 16:35 Blood Pressure 143/83 H 07/16/17 16:35 Pulse Oximetry 94 07/16/17 16:35 Temperature 96.6 F L 07/16/17 16:35 Pulse Rate 86 07/16/17 16:35 Respiratory Rate 18 07/16/17 16:35 Blood Pressure 143/83 H 07/16/17 16:35 Pulse Oximetry 94 07/16/17 16:35 Medical Clearance - Differential Diagnosis Differential Diagnosis Narrative: Alzheimer's dementia, delirium, depression, pseudodementia - Medical Records Attestation: I reviewed the patient's medical records. - Lab Data Attestation: I reviewed the patient's lab results. Result diagrams: 07/16/17 17:11 07/16/17 17:11 Lab Results 07/16/17 07/16/17 07/16/17 Range/Units 17:11 17:11 17:15 WBC 7.2 (4.5-11.0) T/MM3 RBC 4.42 L (4.50-5.90) M/MM3 Hgb 14.5 (13.5-17.5) GM/DL Hct 43.4 (41-53) % MCV 98.2 (80-100) UM3 MCH 32.8 (26-34) UUG MCHC 33.4 (31-37) GM/DL RDW Std Deviation 43.2 (36.9-50.2) FL Plt Count 298 (130-400) T/MM3 MPV 9.9 (9.4-12.4) UM3 Immature Gran % (Auto) 0.3 (0.0-0.5) % Neut % (Auto) 58.9 (33-66) % Lymph % (Auto) 20.6 L (23-45) % [place] % (Auto) 13.4 H (0-9.0) % Eos % (Auto) 6.4 H (0-4) % Baso % (Auto) 0.4 (0-2) % Neut # 4.3 (1.8-7.7) T/MM3 Lymph # 1.5 (1-4.8) T/MM3 [place] # 1.0 H (0-0.8) T/MM3 Eos # 0.5 (0-0.5) T/MM3 Baso # 0.0 (0-0.2) T/MM3 Abs Immat Gran (auto) 0.02 (0.00-0.03) T/MM3 Turbidity < 20 (0-20) Sodium 141 (134-144) MEQ/L Potassium 4.3 (3.6-5) MEQ/L Chloride 105 (98-107) MEQ/L Carbon Dioxide 26 (22-30) MEQ/L Anion Gap 10 (5-15) MEQ/L BUN 17.0 (9-20) MG/DL Creatinine 1.2 (0.8-1.5) MG/DL GFR Calculation 57 BUN/Creatinine Ratio 14 (6-26) RATIO Glucose 148 H (75-110) MG/DL Calculated Osmolality 276 (261-280) MOSM/KG Calcium 9.2 (8.4-10.2) MG/DL Total Bilirubin 0.60 (0.20-1.30) MG/DL Icterus Index < 2 (0-7) AST 29 (17-59) U/L ALT 46 (21-72) U/L Alkaline Phosphatase 86 (38-126) U/L Total Protein 7.0 (6.3-8.2) G/DL Albumin 3.9 (3.5-5.0) G/DL Globulin 3.1 (2.4-3.6) G/DL Albumin/Globulin Ratio 1.3 (1.1-2.2) RATIO Specimen Hemolysis < 15 (0-25) Ur Collection Type Urine, clean catch Urine Color Yellow (YELLOW) Urine Clarity Clear Urine pH 5.5 (5.0-8.0) Ur Specific [place] 1.020 (1.015-1.025) Urine Protein Negative (NEGATIVE) Urine Glucose (UA) Negative (NEGATIVE) Urine Ketones Negative (NEGATIVE) Urine Occult Blood Negative (NEGATIVE) Urine Nitrate Negative (NEGATIVE) Urine Bilirubin Negative (NEGATIVE) Urine Urobilinogen 0.2 (NORMAL) EU/DL Ur Leukocyte Esterase Negative (NEGATIVE) Urinalysis Comment Microscopic not ind. Salicylates < 1.0 L (2-20) MG/DL Acetaminophen < 10 L (10-30) UG/ML Alcohol, Quantitative <10 (<10) MG/DL - EKG Data EKG #1 EKG attestation: Yes: I reviewed and interpreted this EKG. Rhythm: other (Paced) Disposition Clinical Impression: Alzheimer's dementia Qualifiers: Alzheimer's disease onset: unspecified onset Dementia behavioral disturbance: without behavioral disturbance Qualified Code(s): G30.9 - Alzheimer's disease, unspecified; F02.80 - Dementia in other diseases classified elsewhere without behavioral disturbance Disposition: 63 To [facility] Condition: Stable Prescriptions: No Action Apixaban [Eliquis] 5 mg PO BID Quetiapine [Seroquel] 25 mg PO DAILY Metformin [Glucophage] 500 mg PO DAILY Digoxin [Digoxin] 125 mcg PO DAILY Lactobacillus Acidophilus [Acidophilus] 1 each PO DAILY Acetaminophen 500 mg PO QIDPRN PRN PRN Reason: Pain DiltiaZEM IR [Cardizem Ir] 30 mg PO BID Donepezil [Aricept] 5 mg PO HS Referrals: Ray Reese MD [Family Provider] - Time of Disposition: 18:02 - Seen By: physician
[2017-07-16] MEDS ORDERED: HALOPERIDOL 5 MG/ML INJECTION IM PRN (18:56)
[2017-07-16] MEDS ORDERED: HALOPERIDOL 0.5 MG TABLET PO PRN (18:56)
[2017-07-16 19:09] VITALS: BMI 26.6
[2017-07-16] MEDS: APIXABAN 5 MG TABLET PO SCH (20:57)
[2017-07-16] MEDS: DONEPEZIL 5 MG TABLET PO SCH (20:57)
[2017-07-16] MEDS: QUETIAPINE 25 MG TABLET PO SCH (20:58)
[2017-07-16] MEDS: DiltiaZEM IR 30 MG TABLET PO SCH (20:58)
[2017-07-17] MEDS: DiltiaZEM IR 30 MG TABLET PO SCH ×2 (08:24→17:42)
[2017-07-17] MEDS: APIXABAN 5 MG TABLET PO SCH ×2 (08:25→20:08)
[2017-07-17] MEDS: DIGOXIN 125 MCG TABLET PO SCH (08:25)
[2017-07-17] MEDS: LACTOBACILLUS (15B cfu) CAPSULE PO SCH (08:32)
[2017-07-17] MEDS: METFORMIN 500 MG TABLET PO SCH (08:32)
--- NOTE | 2017-07-17 08:52 | History & Physical Report ---
<Tammi Esquivel - Last Filed: 07/17/17 09:26> History of Present Illness Date: 07/17/17 Chief complaint: dementia with behavioral disturbance HPI: Patient is an 86-year-old male patient of Dr. Ray Reese in [place]. He was medically cleared through the emergency room and admitted into the [facility] due to aggressive behaviors at the halfway. Patient resides in assisted living at the [facility] since 03/21/16. Prior to this, patient was living with his until she was no longer able to care for him. Patient is reported to have increased psychomotor agitation, he is aggressive to staff, and has become resistant to staff providing cares over the past several weeks. He has been verbally and physically aggressive when trying to be redirected by staff. He is not known to have any aggressiveness with other residents. Patient was recently seen by Dr. Dawkins at [facility]. 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 In the nurses notes, it is stated that he is to return for suture removal on 07/23/17. Unable to elicit history from patient due to memory loss. Information taken from patient's primary care provider's office notes. Review of Systems Comprehensive ROS: completed and no additional positive findings except those as stated (patient reports he feels fine. Has no complaints.) [facility] Dementia Diabetes mellitus type 2 (diagnosed 06/11) Hypertension Osteoarthritis Atrial fibrillation BPH Dyslipidemia Surgical History: Pacemaker. 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 Cholecystectomy Family History: Family history negative for hypertension, heart disease, CVA, hyperlipidemia, thyroid problems. Brother with depression - Social History Smoking status: Unknown if ever smoked Current occupational status: retired Current residence: Assisted Living ([facility]) Social history: PCP-Dr. Ray Reese (office phone [phone]) [employer]-Dr. Dawkins ([place]) Medications Home Medications Medication Instructions Recorded Confirmed Type Acetaminophen 500 mg PO QIDPRN PRN 07/16/17 07/16/17 History Apixaban [Eliquis] 5 mg PO BID 07/16/17 07/16/17 History ClonazePAM [Klonopin] 0.5 mg PO Q8H PRN 07/16/17 07/16/17 History Digoxin [Digoxin] 125 mcg PO DAILY 07/16/17 07/16/17 History DiltiaZEM IR [Cardizem Ir] 30 mg PO BID 07/16/17 07/16/17 History Donepezil [Aricept] 5 mg PO HS 07/16/17 07/16/17 History Lactobacillus Acidophilus 1 each PO DAILY 07/16/17 07/16/17 History [Acidophilus] Metformin [Glucophage] 500 mg PO DAILY 07/16/17 07/16/17 History Quetiapine [Seroquel] 25 mg PO DAILY 07/16/17 07/16/17 History Allergies Allergy/AdvReac Type Severity Reaction Status Date / Time sotalol Allergy Verified 07/16/17 18:00 Exam Vital Signs: Temperature 97.6 F 07/17/17 08:00 Pulse Rate 91 07/17/17 08:25 Respiratory Rate 16 07/17/17 08:00 Blood Pressure 155/77 H 07/17/17 08:00 Pulse Oximetry 97 07/17/17 08:00 Height/Weight/BMI: Height 1.8 m Weight 86.6 kg Body Mass Index 26.6 - Constitutional Present: no acute distress, well nourished, well developed - Routine HEENT Exam Head: Present: normocephalic, atraumatic Eye: Present: EOMI. Absent: conjunctivae pink ENT: Present: mucous membranes moist - Routine Neck Exam Present: supple, full ROM - Routine Respiratory Exam Present: CTA bilaterally. Absent: wheezes - Routine Cardiovascular Exam Present: RRR, S1, S2. Absent: murmur - Routine Abdominal Exam Present: soft, normoactive bowel sounds, non distended. Absent: tenderness - Routine Extremities Exam Present: no edema, normal capillary refill - Routine Back/Spine/Pelvis Exam Back/Spine: Present: full ROM - Routine Skin Exam Present: dry, warm - Routine Neurological Exam Present: alert, moving all extremities, normal tone, vision grossly intact, hearing grossly intact, normal speech. Absent: oriented X3 (oriented to person only) Gait is steady and slowed-independent - Routine Psychiatric Exam Present: normal affect, cooperative. Absent: agitated, paranoid Results - Labs CBC & Chem 7: 07/16/17 17:11 07/16/17 17:11 Labs: Urinalysis performed 07/11/17-negative Assessment and Plan (1) Dementia with behavioral disturbance Current visit: Yes Status: Acute (2) Alzheimer's dementia Current visit: Yes Status: Acute (3) Type 2 diabetes mellitus Problem details: A1c 8.5% on 06/04/17 Current visit: Yes Status: Acute Assessment and Plan: Assessment: Dementia with behavioral disturbance Atrial fibrillation-on anticoagulation (currently in normal sinus rhythm on exam ) Hypertension Diabetes mellitus type 2-blood sugars from halfway reviewed average 140- 150s. Status post Mohs procedure for squamous cell cancer right ear BPH (normal PSA per PCP's office notes) Plan: Agree to [facility] admission to provide safe environment and improved functional abilities Psychiatric meds per Dr. Beckman Continue Eliquis and digoxin for atrial fibrillation Continue metformin for type 2 diabetes. Monitor Accu-Cheks. Continue diltiazem for hypertension Suture removal is scheduled for 07/23/17 in [place]. Will need to arrange to have sutures removed locally if patient is still in the [facility] unit. On discharge, patient's care will return to his PCP, Dr. Reese Sepsis Assessment - Evaluation Sepsis screening result: No Definite Risk Hospital Course Summary Disclaimer: The visit summary below is not to be considered part of the above Progress Note. <FadiKaila L - Last Filed: 07/18/17 19:11> History of Present Illness Date: 07/18/17 [facility] Patient Stated Medical History Alzheimer's Disease Yes Dementia Yes Cardiac Arrhythmia Yes Hypertension Yes Diabetes Mellitus Type 2 Yes Osteoarthritis Yes Exam Vital Signs: Temperature 97.9 F 07/18/17 15:56 Pulse Rate 76 07/18/17 15:56 Respiratory Rate 16 07/18/17 15:56 Blood Pressure 138/72 07/18/17 15:56 Pulse Oximetry 97 07/18/17 15:56 Oxygen Delivery Method Room Air Height/Weight/BMI: Height 1.8 m Weight 86.6 kg Body Mass Index 26.6 Results - Labs CBC & Chem 7: 07/16/17 17:11 07/16/17 17:11 Assessment and Plan (1) Alzheimer's dementia Current visit: Yes Status: Acute (2) Dementia with behavioral disturbance Current visit: Yes Status: Acute (3) Type 2 diabetes mellitus Problem details: A1c 8.5% on 06/04/17 Current visit: Yes Status: Acute Assessment and Plan: 07/18/2017-I reviewed this chart, the patient history, and the LOSS PREVENTION RESEARCH ENGINEER's/PA's documented findings as above. We discussed and formulated the assessment and plan as above with the additions below.-Dr. Aponte The patient was seen in the day room. He stated he was feeling just fine. He denied any pain anywhere. He specifically denied chest pain. He denied any shortness of breath or nausea. He stated he was eating and drinking well. On exam he is alert, and oriented to [place]. He is in no acute distress. HEENT reveals sclerae to be anicteric, oropharynx is moist, incision of the right ear is healing well. Chest is clear to auscultation. Cardiovascular reveals a regular rate and rhythm. Abdomen is soft and nontender. Extremities reveal no edema. Lab CBC is essentially normal. He does have mildly high monocytes and eosinophils. Comprehensive metabolic panel is normal. Hemoglobin A1c 7.3 showing good control. Pre-albumin 24.8. Triglycerides are elevated at 370. Total cholesterol is 204. LDL 109. HDL 21. VLDL 24. B 12 was low at 200. Folate is normal at 12.2. TSH is normal Chest x-ray shows possible small left effusion. CT head is negative Impression The patient appears medically stable. Dementia with behavior disturbance. Improving per nurses. Paroxysmal A. fib, on anticoagulation. Patient has a regular rate and rhythm on exam today. Hypertension-fair control Type 2 diabetes mellitus-fair control on metformin Low B 12 Elevated cholesterol/triglyceride Plan Continue with current treatment as above. 1000 g vitamin B-12 IM daily Hospital Course Summary Disclaimer: The visit summary below is not to be considered part of the above Progress Note.
[2017-07-17] MEDS: QUETIAPINE 25 MG TABLET PO SCH (20:08)
[2017-07-17] MEDS: DONEPEZIL 5 MG TABLET PO SCH (20:08)
[2017-07-17] MEDS: LORazepam 0.5 MG TABLET PO PRN (20:09)
--- NOTE | 2017-07-17 21:11 | 24 Hour Neuropsychiatic Eval ---
Date of Admission: 07/16/17 18:22 Chief complaint: "We have been driving alot History of Present Illness: HPI: 86 Y/O CM with a hx of dementia sent from [place] in [place] for increasing agitation and aggression with staff at times. Daughter reports the pt became angry with staff and grabbed them on the arm and then told another staff member he was going to harm her. On face to face the pt is pleasant but confused. He oriented x 2. He believes he is in [place]. He denies any pain, depression , S/I or psychosis. STRESSORS: Denies PSYCH ROS: Pt denies any depression, anxiety, greer or psychosis. He has a hx of dementia with some behavioral issues. PAST PSYCH: Denies any past psych hx. SUBSTANCE ABUSE: Denies any hx of substance abuse [facility] Patient Stated Medical History Alzheimer's Disease Yes Dementia Yes Cardiac Arrhythmia Yes Hypertension Yes Diabetes Mellitus Type 2 Yes Osteoarthritis Yes Medical History Updates: Alzheimer's dementia. Cardiac arrhythmia. HTN. DM Surgical History: Pacemaker. 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 Cholecystectomy - Social History Smoking status: Unknown if ever smoked Current residence: Assisted Living ([facility]) Review of Systems - Psychiatric Psychiatric: Present: behavioral changes Mental Status Exam Vitals: Last Vital Signs Temp 97.6 F 07/17/17 16:00 Pulse 90 07/17/17 16:00 Resp 18 07/17/17 16:00 BP 157/80 H 07/17/17 16:00 Pulse Ox 98 07/17/17 16:00 Height: 1.8 m Weight: 86.6 kg - Mental Status Exam Muscle Strength/Tone: Normal Dressing: Casual Grooming: Good Attitude: Cooperative Motor Activity: Normal Eye Contact: Fair Speech: Slowed Volume: Soft Rhythm: Appropriate Rhythm Orientation: Oriented to person, Oriented to time Mood: Neutral Affect: Relaxed Rate of Thoughts: Delayed Thought Organization: [place] Associations: Intact Abstract Reasoning: Impaired, concrete Thought Content: Normal Perception/Psychotic: Perception Normal Language: Naming Impaired Fund of Knowledge: Poor fund of knowledge Memory: Poor-immediate, Poor-recent Suicidal Ideation: None Homicidal Ideation: None Insight: Poor Judgement: Poor Impulse Control: Fair - Laboratory Result Diagrams: 07/16/17 17:11 07/16/17 17:11 Laboratory Results - last 24 hr 07/17/17 07:11 Glucometer 142 Assessment and Plan (1) Major neurocognitive disorder Problem details: With behavioral disturbance most likely Alzheimer's Type Current visit: Yes Status: Acute Continue to evaluate and stabilize. Will continue Seroquel at HS
[2017-07-18] MEDS: METFORMIN 500 MG TABLET PO SCH (08:50)
[2017-07-18] MEDS: DiltiaZEM IR 30 MG TABLET PO SCH ×2 (08:50→17:21)
[2017-07-18] MEDS: APIXABAN 5 MG TABLET PO SCH ×2 (08:51→20:15)
[2017-07-18] MEDS: DIGOXIN 125 MCG TABLET PO SCH (08:51)
[2017-07-18] MEDS: LACTOBACILLUS (15B cfu) CAPSULE PO SCH (08:51)
--- NOTE | 2017-07-18 16:31 | CT Scan Report ---
Indication: mental status change PROCEDURE: CT head/brain wo con: Encounter: Initial Comparison: None Technique: Axial CT images through the head were performed without contrast. Iterative Reconstruction dose reducing technique was utilized. FINDINGS: Moderate generalized atrophy. The ventricles are proportional to atrophy. There are scattered areas of low attenuation in the white matter which most likely represent changes from chronic microvascular ischemia. The brainstem, cerebellum, and cerebral hemispheres otherwise have a normal morphology and CT attenuation. There is no evidence of midline displacement. No hemorrhage, signs of acute territorial stroke, mass effect, mass lesions, or edema is evident. The visualized portions of the skull base, midface, and calvarium demonstrate no abnormality. The paranasal sinuses are well aerated and free of significant disease. The tympanic and mastoid cavities appear normal. IMPRESSION: No acute intracranial abnormality or hemorrhage. .
--- NOTE | 2017-07-18 17:11 | XRay Report ---
INDICATION: mental status change PROCEDURE: CHEST 2-VIEWS UPRIGHT (PA & LAT) Encounter: Initial COMPARISON: None FINDINGS: Calcified granulomas in the right lower lobe and right upper lobe. No consolidative pneumonia. Blunting of the left costophrenic angle could relate to pleural thickening or small left effusion. Left pacemaker. Cardiac silhouette is normal in size. Mediastinal contours and pulmonary vascularity appear normal. Bony demineralization. 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 IMPRESSION: Possible small left effusion. .
[2017-07-18] MEDS: LORazepam 0.5 MG TABLET PO PRN (19:10)
[2017-07-18] MEDS: DONEPEZIL 5 MG TABLET PO SCH (20:15)
[2017-07-18] MEDS: QUETIAPINE 25 MG TABLET PO SCH (20:15)
--- NOTE | 2017-07-18 20:37 | Neuropsych Progress Note ---
[facility] Subjective Date: 07/18/17 - Sujective/Severity of Illness Medications: Apixaban (Eliquis) 5 mg PO BID [facility] Last Admin: 07/18/17 20:15 Dose: 5 mg Cyanocobalamin (Vit. B-12) 1,000 mcg IM DAILY [facility] Digoxin (Lanoxin) 125 mcg PO DAILY [facility] Last Admin: 07/18/17 08:51 Dose: 125 mcg Diltiazem HCl (Cardizem Ir) 30 mg PO ACBID30 [facility] Last Admin: 07/18/17 17:21 Dose: 30 mg Donepezil HCl (Aricept) 5 mg PO [facility] Last Admin: 07/18/17 20:15 Dose: 5 mg Haloperidol (Haldol) 0.5 mg PO Q6H PRN PRN Reason: Extreme agitation Last Admin: 07/18/17 19:10 Dose: 0.5 mg Haloperidol Lactate (Haldol) 0.5 mg IM Q6H PRN PRN Reason: Extreme agitation Lactobacillus Acidophilus (Culturelle) 1 cap PO [facility] Last Admin: 07/18/17 08:51 Dose: 1 cap Lorazepam (Ativan) 0.5 mg PO Q6H PRN PRN Reason: Extreme agitation Last Admin: 07/18/17 19:10 Dose: 0.5 mg Lorazepam (Ativan Inj) 0.5 mg IM Q6H PRN PRN Reason: Extreme agitation Metformin HCl (Glucophage) 500 mg PO [facility] Last Admin: 07/18/17 08:50 Dose: 500 mg Quetiapine Fumarate (Seroquel) 25 mg PO [facility] Last Admin: 07/18/17 20:15 Dose: 25 mg Subjective: Pt seen and chart examined. Nursing reports pt became agitated last night and grabbed a staff member Pt also had some exit seeking behavior. Pt was given Ativan which was helpful. On face to face the pt states he is doing well. He is pleasant but confused. Oriented x 2. Tolerating meds. Voices no concerns Start Time: 18:30 Stop Time: 18:45 Mental Status Exam Vitals: Last Vital Signs Temp 97.9 F 07/18/17 15:56 Pulse 76 07/18/17 15:56 Resp 16 07/18/17 15:56 BP 138/72 07/18/17 15:56 Pulse Ox 97 07/18/17 15:56 Height: 1.8 m Weight: 86.6 kg - Mental Status Exam Muscle Strength/Tone: Normal Dressing: Casual Grooming: Good Attitude: Cooperative Motor Activity: Normal Eye Contact: Fair Speech: Slowed Volume: Soft Rhythm: Appropriate Rhythm Orientation: Oriented to person, Oriented to time Mood: Neutral Rate of Thoughts: Delayed Thought Organization: [place] Associations: Intact Abstract Reasoning: Impaired, concrete Thought Content: Normal Perception/Psychotic: Perception Normal Language: Naming Impaired Fund of Knowledge: Poor fund of knowledge Memory: Poor-immediate, Poor-recent Suicidal Ideation: None Homicidal Ideation: None Insight: Poor Judgement: Poor Impulse Control: Fair - Laboratory Result Diagrams: 07/16/17 17:11 07/16/17 17:11 Laboratory Results - last 24 hr 07/18/17 06:10 Glucometer 151 Assessment and Plan (1) Major neurocognitive disorder Problem details: With behavioral disturbance most likely Alzheimer's Type Current visit: Yes Status: Acute Hospital Course Summary Disclaimer: The visit summary below is not to be considered part of the above Progress Note. Hospital Course: 07/18/17 20:36 Increase Seroquel to 50mg and give at 1900 instead of HS
[2017-07-19] MEDS: DiltiaZEM IR 30 MG TABLET PO SCH ×2 (09:09→17:08)
[2017-07-19] MEDS: LACTOBACILLUS (15B cfu) CAPSULE PO SCH (09:09)
[2017-07-19] MEDS: DIGOXIN 125 MCG TABLET PO SCH (09:10)
[2017-07-19] MEDS: CYANOCOBALAMIN (B-12) 1,000mcg/ml INJECTION IM SCH (09:10)
[2017-07-19] MEDS: APIXABAN 5 MG TABLET PO SCH ×2 (09:10→19:40)
[2017-07-19] MEDS: METFORMIN 500 MG TABLET PO SCH (09:10)
[2017-07-19] MEDS: QUETIAPINE 25 MG TABLET PO SCH (19:05)
[2017-07-19] MEDS: DONEPEZIL 5 MG TABLET PO SCH (19:39)
--- NOTE | 2017-07-19 20:06 | Neuropsych Progress Note ---
Generations Subjective Date: 07/19/17 - Sujective/Severity of Illness Medications: Apixaban (Eliquis) 5 mg PO BID [facility] Last Admin: 07/19/17 19:40 Dose: 5 mg Cyanocobalamin (Vit. B-12) 1,000 mcg IM DAILY [facility] Last Admin: 07/19/17 09:10 Dose: 1,000 mcg Digoxin (Lanoxin) 125 mcg PO DAILY [facility] Last Admin: 07/19/17 09:10 Dose: 125 mcg Diltiazem HCl (Cardizem Ir) 30 mg PO ACBID30 [facility] Last Admin: 07/19/17 17:08 Dose: 30 mg Donepezil HCl (Aricept) 5 mg PO HS [facility] Last Admin: 07/19/17 19:39 Dose: 5 mg Haloperidol (Haldol) 0.5 mg PO Q6H PRN PRN Reason: Extreme agitation Last Admin: 07/18/17 19:10 Dose: 0.5 mg Haloperidol Lactate (Haldol) 0.5 mg IM Q6H PRN PRN Reason: Extreme agitation Lactobacillus Acidophilus (Culturelle) 1 cap PO [facility] Last Admin: 07/19/17 09:09 Dose: 1 cap Lorazepam (Ativan) 0.5 mg PO Q6H PRN PRN Reason: Extreme agitation Last Admin: 07/18/17 19:10 Dose: 0.5 mg Lorazepam (Ativan Inj) 0.5 mg IM Q6H PRN PRN Reason: Extreme agitation Metformin HCl (Glucophage) 500 mg PO [facility] Last Admin: 07/19/17 09:10 Dose: 500 mg Quetiapine Fumarate (Seroquel) 50 mg PO 1900 [facility] Last Admin: 07/19/17 19:05 Dose: 50 mg Subjective: Pt seen and chart examined. Nursing reports pt can be irritable and confused more in the evening but does well during the day. Pt slept well and has a good appetite. On face to face the pt states he is doing well.He is pleasant but confused. Denies pain. Tolerating meds Start Time: 18:30 Stop Time: 18:45 Mental Status Exam Vitals: Last Vital Signs Temp 97.6 F 07/19/17 16:00 Pulse 75 07/19/17 16:00 Resp 16 07/19/17 16:00 BP 164/79 H 07/19/17 16:00 Pulse Ox 97 07/19/17 16:00 Height: 1.8 m Weight: 88 kg - Mental Status Exam Muscle Strength/Tone: Normal Dressing: Casual Grooming: Good Attitude: Cooperative Motor Activity: Normal Eye Contact: Fair Speech: Slowed Volume: Soft Rhythm: Appropriate Rhythm Orientation: Oriented to person, Oriented to time Mood: Neutral Rate of Thoughts: Delayed Thought Organization: [place] Associations: Intact Abstract Reasoning: Impaired, concrete Thought Content: Normal Perception/Psychotic: Perception Normal Language: Naming Impaired Fund of Knowledge: Poor fund of knowledge Memory: Poor-immediate, Poor-recent Suicidal Ideation: None Homicidal Ideation: None Insight: Poor Judgement: Poor Impulse Control: Fair - Laboratory Result Diagrams: 07/16/17 17:11 07/16/17 17:11 Laboratory Results - last 24 hr 07/19/17 04:26 Glucometer 179 Assessment and Plan (1) Major neurocognitive disorder Problem details: With behavioral disturbance most likely Alzheimer's Type Current visit: Yes Status: Acute Hospital Course Summary Disclaimer: The visit summary below is not to be considered part of the above Progress Note. Hospital Course: 07/18/17 20:36 Increase Seroquel to 50mg and give at 1900 instead of HS 07/19/17 20:06 Pt slightly improved. Increased Seroquel yesterday. Continue current care
[2017-07-20] MEDS: DiltiaZEM IR 30 MG TABLET PO SCH ×2 (08:14→17:17)
[2017-07-20] MEDS: LACTOBACILLUS (15B cfu) CAPSULE PO SCH (08:15)
[2017-07-20] MEDS: APIXABAN 5 MG TABLET PO SCH ×2 (08:15→20:36)
[2017-07-20] MEDS: METFORMIN 500 MG TABLET PO SCH (08:15)
[2017-07-20] MEDS: DIGOXIN 125 MCG TABLET PO SCH (08:15)
[2017-07-20] MEDS: CYANOCOBALAMIN (B-12) 1,000mcg/ml INJECTION IM SCH (08:16)
--- NOTE | 2017-07-20 10:52 | Progress Note ---
Subjective: Mr Rincon is seen today following his shower while laying in bed. He states that he is tired and he is resting prior to breakfast. He denies having pain, shortness of breath or GI complaints. Nursing staff reports overnight having some intermittent episodes of pain verbally upset with staff at bedtime, although he slept well overnight. Noted his blood pressures have been moderately elevated 140s to 160s Objective Vital signs: Temperature 97.8 F 07/20/17 08:00 Pulse Rate 90 07/20/17 08:15 Respiratory Rate 20 07/20/17 08:00 Blood Pressure 147/82 H 07/20/17 08:00 Pulse Oximetry 97 07/20/17 08:00 Oxygen Delivery Method Room Air Height/Weight/BMI: Height 1.8 m Weight 88 kg Body Mass Index 26.6 - Constitutional Present: no acute distress, well nourished, well developed - Routine HEENT Exam Eye: Present: EOMI ENT: Present: mucous membranes moist, dentition normal - Routine Respiratory Exam Present: CTA bilaterally. Absent: wheezes - Routine Cardiovascular Exam Present: RRR, S1, S2. Absent: murmur - Routine Abdominal Exam Present: soft, normoactive bowel sounds, non distended. Absent: tenderness - Routine Extremities Exam Present: no edema, normal capillary refill - Routine Skin Exam Present: intact, dry, warm - Routine Neurological Exam Present: alert, CN II-XII intact, moving all extremities - Routine Lymphatic Exam Lymphatic: Absent: adenopathy - Routine Psychiatric Exam Present: cooperative Results - Labs CBC & Chem 7: 07/16/17 17:11 07/16/17 17:11 Assessment and Plan (1) Alzheimer's dementia Current visit: Yes Status: Acute (2) Dementia with behavioral disturbance Current visit: Yes Status: Acute (3) Type 2 diabetes mellitus Problem details: A1c 8.5% on 06/04/17 Current visit: Yes Status: Acute Assessment and Plan: Impression The patient appears medically stable. Dementia with behavior disturbance. Improving per nurses. Paroxysmal A. fib, on anticoagulation. Patient has a regular rate and rhythm on exam today. Hypertension-fair control Type 2 diabetes mellitus-fair control on metformin Low B 12 Elevated cholesterol/triglyceride Plan Continue 1000 g vitamin B-12 IM daily Will continue to follow blood pressures routinely. Continue Eliquis, Cardizem and digoxin for atrial fibrillation Continue metformin . Blood sugars appear to be well controlled, fasting sugar this slightly elevated at 179 Will need Suture removal from ear on 07/23/17 if patient is still here. Otherwise , he is scheduled to have this done in [place] Sepsis Assessment - Evaluation Sepsis screening result: No Definite Risk Hospital Course Summary Disclaimer: The visit summary below is not to be considered part of the above Progress Note. Hospital Course: 07/18/17 20:36 Increase Seroquel to 50mg and give at 1900 instead of HS 07/19/17 20:06 Pt slightly improved. Increased Seroquel yesterday. Continue current care 07/20/17 Plan Continue 1000 g vitamin B-12 IM daily Will continue to follow blood pressures routinely. Continue Eliquis, Cardizem and digoxin for atrial fibrillation Continue metformin . Blood sugars appear to be well controlled, fasting sugar this slightly elevated at 179 Will need Suture removal from ear on 07/23/17 if patient is still here. Otherwise , he is scheduled to have this done in [place]
--- NOTE | 2017-07-20 14:31 | Neuropsych Progress Note ---
Generations Subjective Date: 07/20/17 - Sujective/Severity of Illness Medications: Apixaban (Eliquis) 5 mg PO BID [facility] Last Admin: 07/20/17 08:15 Dose: 5 mg Cyanocobalamin (Vit. B-12) 1,000 mcg IM DAILY [facility] Last Admin: 07/20/17 08:16 Dose: 1,000 mcg Digoxin (Lanoxin) 125 mcg PO DAILY [facility] Last Admin: 07/20/17 08:15 Dose: 125 mcg Diltiazem HCl (Cardizem Ir) 30 mg PO ACBID30 [facility] Last Admin: 07/20/17 08:14 Dose: 30 mg Donepezil HCl (Aricept) 5 mg PO HS [facility] Last Admin: 07/19/17 19:39 Dose: 5 mg Haloperidol (Haldol) 0.5 mg PO Q6H PRN PRN Reason: Extreme agitation Last Admin: 07/18/17 19:10 Dose: 0.5 mg Haloperidol Lactate (Haldol) 0.5 mg IM Q6H PRN PRN Reason: Extreme agitation Lactobacillus Acidophilus (Culturelle) 1 cap PO [facility] Last Admin: 07/20/17 08:15 Dose: 1 cap Lorazepam (Ativan) 0.5 mg PO Q6H PRN PRN Reason: Extreme agitation Last Admin: 07/18/17 19:10 Dose: 0.5 mg Lorazepam (Ativan Inj) 0.5 mg IM Q6H PRN PRN Reason: Extreme agitation Metformin HCl (Glucophage) 500 mg PO [facility] Last Admin: 07/20/17 08:15 Dose: 500 mg Quetiapine Fumarate (Seroquel) 50 mg PO 1900 [facility] Last Admin: 07/19/17 19:05 Dose: 50 mg Subjective: Patient seen and chart reviewed. Case discussed with treatment team. On interview, patient is pleasant but says he is sleepy because he is bored. Patient denies any SI, HI or AVH. Patient denies any adverse side effects related to psychotropic medications. Nursing staff report patient slapped at staff member's legs last night but was able to be verbally directed - however, did grab at a nurse this morning when he didn't want her to leave. Patient slept well overnight. VSS. Patient is eating well. Psychotropic PRNs required in the past 24 hours: none. Start Time: 12:00 Stop Time: 12:20 Mental Status Exam Vitals: Last Vital Signs Temp 97.8 F 07/20/17 08:00 Pulse 90 07/20/17 08:15 Resp 20 07/20/17 08:00 BP 147/82 H 07/20/17 08:00 Pulse Ox 97 07/20/17 08:00 Height: 1.8 m Weight: 88 kg - Mental Status Exam Muscle Strength/Tone: Normal Dressing: Casual Grooming: Good Attitude: Cooperative Motor Activity: Normal Eye Contact: Fair Speech: Slowed Volume: Soft Rhythm: Appropriate Rhythm Orientation: Oriented to person, Oriented to time Mood: Neutral (Affect labile but improving overall) Rate of Thoughts: Delayed Thought Organization: [place] Associations: Intact Abstract Reasoning: Impaired, concrete Thought Content: Normal Perception/Psychotic: Perception Normal Language: Naming Impaired Fund of Knowledge: Poor fund of knowledge Memory: Poor-immediate, Poor-recent Suicidal Ideation: None Homicidal Ideation: None Insight: Poor Judgement: Poor Impulse Control: Fair - Laboratory Result Diagrams: 07/16/17 17:11 07/16/17 17:11 Laboratory Results - last 24 hr 07/20/17 07:22 Glucometer 167 Assessment and Plan (1) Major neurocognitive disorder Problem details: With behavioral disturbance most likely Alzheimer's Type Current visit: Yes Status: Acute Patient seems to be improving overall - monitor for sedation and consider increasing frequency of low-dose Seroquel if patient continues to be alert enough during the day. Monitor whether patient seems to exhibit more behaviors during certain time of day as he was able to be verbally redirected last night. Hospital Course Summary Disclaimer: The visit summary below is not to be considered part of the above Progress Note. Hospital Course: 07/18/17 20:36 Increase Seroquel to 50mg and give at 1900 instead of HS 07/19/17 20:06 Pt slightly improved. Increased Seroquel yesterday. Continue current care 07/20/17 Plan Continue 1000 g vitamin B-12 IM daily Will continue to follow blood pressures routinely. Continue Eliquis, Cardizem and digoxin for atrial fibrillation Continue metformin . Blood sugars appear to be well controlled, fasting sugar this slightly elevated at 179 Will need Suture removal from ear on 07/23/17 if patient is still here. Otherwise , he is scheduled to have this done in [place]
[2017-07-20] MEDS: QUETIAPINE 25 MG TABLET PO SCH (18:43)
[2017-07-20] MEDS: DONEPEZIL 5 MG TABLET PO SCH (20:36)
--- NOTE | 2017-07-21 06:35 | Neuropsych Progress Note ---
Generations Subjective Date: 07/21/17 - Sujective/Severity of Illness Medications: Apixaban (Eliquis) 5 mg PO BID [facility] Last Admin: 07/20/17 20:36 Dose: 5 mg Cyanocobalamin (Vit. B-12) 1,000 mcg IM DAILY [facility] Last Admin: 07/20/17 08:16 Dose: 1,000 mcg Digoxin (Lanoxin) 125 mcg PO DAILY [facility] Last Admin: 07/20/17 08:15 Dose: 125 mcg Diltiazem HCl (Cardizem Ir) 30 mg PO ACBID30 [facility] Last Admin: 07/20/17 17:17 Dose: 30 mg Donepezil HCl (Aricept) 5 mg PO HS [facility] Last Admin: 07/20/17 20:36 Dose: 5 mg Haloperidol (Haldol) 0.5 mg PO Q6H PRN PRN Reason: Extreme agitation Last Admin: 07/18/17 19:10 Dose: 0.5 mg Haloperidol Lactate (Haldol) 0.5 mg IM Q6H PRN PRN Reason: Extreme agitation Lactobacillus Acidophilus (Culturelle) 1 cap PO [facility] Last Admin: 07/20/17 08:15 Dose: 1 cap Lorazepam (Ativan) 0.5 mg PO Q6H PRN PRN Reason: Extreme agitation Last Admin: 07/18/17 19:10 Dose: 0.5 mg Lorazepam (Ativan Inj) 0.5 mg IM Q6H PRN PRN Reason: Extreme agitation Metformin HCl (Glucophage) 500 mg PO [facility] Last Admin: 07/20/17 08:15 Dose: 500 mg Quetiapine Fumarate (Seroquel) 50 mg PO 1900 [facility] Last Admin: 07/20/17 18:43 Dose: 50 mg Subjective: Patient seen and chart reviewed. Case discussed with treatment team. Patient sleeping at time of AM rounds. Nursing staff report patient has been cooperative without any inappropriate behaviors or sexual inappropriateness since the previous note. Patient slept well overnight. VSS. Patient is eating well. Psychotropic PRNs required in the past 24 hours: none. Start Time: 06:45 Stop Time: 07:00 Mental Status Exam Vitals: Last Vital Signs Temp 97.4 F 07/20/17 19:15 Pulse 77 07/20/17 19:15 Resp 16 07/20/17 19:15 BP 142/71 H 07/20/17 19:15 Pulse Ox 97 07/20/17 19:15 Height: 1.8 m Weight: 88 kg - Mental Status Exam Muscle Strength/Tone: Normal Dressing: Casual Grooming: Good Attitude: Cooperative Motor Activity: Normal Eye Contact: Fair Speech: Slowed Volume: Soft Rhythm: Appropriate Rhythm Orientation: Oriented to person, Oriented to time Mood: Neutral (Patient sleeping at time of AM rounds, lability seems to be decreasing per RN report) Rate of Thoughts: Delayed Thought Organization: [place] Associations: Intact Abstract Reasoning: Impaired, concrete Thought Content: Normal Perception/Psychotic: Perception Normal Language: Naming Impaired Fund of Knowledge: Poor fund of knowledge Memory: Poor-immediate, Poor-recent Suicidal Ideation: None Homicidal Ideation: None Insight: Poor Judgement: Poor Impulse Control: Fair - Laboratory Result Diagrams: 07/16/17 17:11 07/16/17 17:11 Laboratory Results - last 24 hr 07/20/17 07/21/17 07:22 06:27 Glucometer 167 133 Assessment and Plan (1) Major neurocognitive disorder Problem details: With behavioral disturbance most likely Alzheimer's Type Current visit: Yes Status: Acute Continue current care - monitor for any continued inappropriate behaviors; seems to be doing well overall. Hospital Course Summary Disclaimer: The visit summary below is not to be considered part of the above Progress Note. Hospital Course: 07/18/17 20:36 Increase Seroquel to 50mg and give at 1900 instead of HS 07/19/17 20:06 Pt slightly improved. Increased Seroquel yesterday. Continue current care 07/20/17 Plan Continue 1000 g vitamin B-12 IM daily Will continue to follow blood pressures routinely. Continue Eliquis, Cardizem and digoxin for atrial fibrillation Continue metformin . Blood sugars appear to be well controlled, fasting sugar this slightly elevated at 179 Will need Suture removal from ear on 07/23/17 if patient is still here. Otherwise , he is scheduled to have this done in [place]
[2017-07-21] MEDS: APIXABAN 5 MG TABLET PO SCH ×3 (09:20→22:39)
[2017-07-21] MEDS: LACTOBACILLUS (15B cfu) CAPSULE PO SCH (09:20)
[2017-07-21] MEDS: METFORMIN 500 MG TABLET PO SCH (09:20)
[2017-07-21] MEDS: DIGOXIN 125 MCG TABLET PO SCH (09:22)
[2017-07-21] MEDS: DiltiaZEM IR 30 MG TABLET PO SCH ×2 (09:23→17:15)
[2017-07-21] MEDS: CYANOCOBALAMIN (B-12) 1,000mcg/ml INJECTION IM SCH (09:23)
[2017-07-21] MEDS ORDERED: ACETAMINOPHEN 325 MG TABLET PO PRN (19:16)
[2017-07-21] MEDS: QUETIAPINE 25 MG TABLET PO SCH (19:20)
[2017-07-21] MEDS: DONEPEZIL 5 MG TABLET PO SCH ×2 (19:20→22:39)
[2017-07-21] MEDS: LORazepam 0.5 MG TABLET PO PRN (19:40)
[2017-07-22] MEDS: APIXABAN 5 MG TABLET PO SCH ×2 (10:54→20:09)
[2017-07-22] MEDS: DIGOXIN 125 MCG TABLET PO SCH (10:54)
[2017-07-22] MEDS: DiltiaZEM IR 30 MG TABLET PO SCH ×2 (10:54→17:58)
[2017-07-22] MEDS: METFORMIN 500 MG TABLET PO SCH (10:54)
[2017-07-22] MEDS: LACTOBACILLUS (15B cfu) CAPSULE PO SCH (10:55)
[2017-07-22] MEDS: CYANOCOBALAMIN (B-12) 1,000mcg/ml INJECTION IM SCH (10:55)
--- NOTE | 2017-07-22 15:57 | Neuropsych Progress Note ---
Generations Subjective Date: 07/22/17 - Sujective/Severity of Illness Medications: Acetaminophen (Tylenol) 650 mg PO Q5H PRN PRN Reason: Discomfort Last Admin: 07/21/17 19:20 Dose: 650 mg Apixaban (Eliquis) 5 mg PO BID [facility] Last Admin: 07/22/17 10:54 Dose: 5 mg Cyanocobalamin (Vit. B-12) 1,000 mcg IM DAILY [facility] Last Admin: 07/22/17 10:55 Dose: 1,000 mcg Digoxin (Lanoxin) 125 mcg PO DAILY [facility] Last Admin: 07/22/17 10:54 Dose: 125 mcg Diltiazem HCl (Cardizem Ir) 30 mg PO ACBID30 [facility] Last Admin: 07/22/17 10:54 Dose: 30 mg Donepezil HCl (Aricept) 5 mg PO [facility] Last Admin: 07/21/17 22:39 Dose: Not Given Haloperidol (Haldol) 0.5 mg PO Q6H PRN PRN Reason: Extreme agitation Last Admin: 07/18/17 19:10 Dose: 0.5 mg Haloperidol Lactate (Haldol) 0.5 mg IM Q6H PRN PRN Reason: Extreme agitation Lactobacillus Acidophilus (Culturelle) 1 cap PO [facility] Last Admin: 07/22/17 10:55 Dose: 1 cap Lorazepam (Ativan) 0.5 mg PO Q6H PRN PRN Reason: Extreme agitation Last Admin: 07/21/17 19:40 Dose: 0.5 mg Lorazepam (Ativan Inj) 0.5 mg IM Q6H PRN PRN Reason: Extreme agitation Metformin HCl (Glucophage) 500 mg PO [facility] Last Admin: 07/22/17 10:54 Dose: 500 mg Quetiapine Fumarate (Seroquel) 50 mg PO 1900 [facility] Last Admin: 07/21/17 19:20 Dose: 50 mg Subjective: Patient seen and chart reviewed. Case discussed with treatment team. Patient calm and cooperative upon interview; daughter visiting and reports he seems to be improved as well though can get upset from time to time. He reports that his mood is good and doesn't have memory of previous behaviors. Nursing staff report last night patient was cooperative with cares but later on complained of left foot pain and became physically aggressive when they were trying to examine it. I did ask him about it today, he doesn't remember becoming upset but allowed me to examine the foot without difficulty. No visible sores, etc. but he says some stockings were squeezing his toes together which was uncomfortable. Patient was up for a time overnight but returned to bed without PRNs after having a diet drink. VSS. Patient is eating well. Psychotropic PRNs required in the past 24 hours: Ativan 0.5mg PO x 1 for agitation described above. Start Time: 11:00 Stop Time: 11:20 Mental Status Exam Vitals: Last Vital Signs Temp 97.6 F 07/22/17 08:00 Pulse 75 07/22/17 10:54 Resp 16 07/22/17 08:00 BP 130/81 07/22/17 08:00 Pulse Ox 95 07/22/17 08:00 Height: 1.8 m Weight: 87.9 kg - Mental Status Exam Muscle Strength/Tone: Normal Dressing: Casual Grooming: Good Attitude: Cooperative Motor Activity: Normal Eye Contact: Fair Speech: Slowed Volume: Soft Rhythm: Appropriate Rhythm Orientation: Oriented to person, Oriented to time Mood: Euthymic (Affect labile, improving - worse in evenings) Rate of Thoughts: Delayed Thought Organization: [place] Associations: Intact Abstract Reasoning: Impaired, concrete Thought Content: Normal Perception/Psychotic: Perception Normal Language: Naming Impaired Fund of Knowledge: Poor fund of knowledge Memory: Poor-immediate, Poor-recent Suicidal Ideation: None Homicidal Ideation: None Insight: Poor Judgement: Poor Impulse Control: Fair - Laboratory Result Diagrams: 07/16/17 17:11 07/16/17 17:11 Laboratory Results - last 24 hr 07/22/17 02:29 Glucometer 144 Assessment and Plan (1) Major neurocognitive disorder Problem details: With behavioral disturbance most likely Alzheimer's Type Current visit: Yes Status: Acute Improving overall - has periods of brief agitation - continue current care and PRNs as needed for pain control. Hospital Course Summary Disclaimer: The visit summary below is not to be considered part of the above Progress Note. Hospital Course: 07/18/17 20:36 Increase Seroquel to 50mg and give at 1900 instead of HS 07/19/17 20:06 Pt slightly improved. Increased Seroquel yesterday. Continue current care 07/20/17 Plan Continue 1000 g vitamin B-12 IM daily Will continue to follow blood pressures routinely. Continue Eliquis, Cardizem and digoxin for atrial fibrillation Continue metformin . Blood sugars appear to be well controlled, fasting sugar this slightly elevated at 179 Will need Suture removal from ear on 07/23/17 if patient is still here. Otherwise , he is scheduled to have this done in [place]
[2017-07-22] MEDS: QUETIAPINE 25 MG TABLET PO SCH ×2 (17:58→18:31)
[2017-07-22] MEDS: DONEPEZIL 5 MG TABLET PO SCH (20:08)
[2017-07-23] MEDS: DiltiaZEM IR 30 MG TABLET PO SCH ×2 (09:50→17:34)
[2017-07-23] MEDS: LACTOBACILLUS (15B cfu) CAPSULE PO SCH (09:50)
[2017-07-23] MEDS: APIXABAN 5 MG TABLET PO SCH ×2 (09:50→19:26)
[2017-07-23] MEDS: METFORMIN 500 MG TABLET PO SCH (09:50)
[2017-07-23] MEDS: DIGOXIN 125 MCG TABLET PO SCH (09:51)
[2017-07-23] MEDS: CYANOCOBALAMIN (B-12) 1,000mcg/ml INJECTION IM SCH (09:52)
[2017-07-23] MEDS: QUETIAPINE 25 MG TABLET PO SCH (18:33)
[2017-07-23] MEDS: DONEPEZIL 5 MG TABLET PO SCH (19:26)
--- NOTE | 2017-07-23 20:40 | Neuropsych Progress Note ---
Generations Subjective Date: 07/23/17 - Sujective/Severity of Illness Medications: Acetaminophen (Tylenol) 650 mg PO Q5H PRN PRN Reason: Discomfort Last Admin: 07/21/17 19:20 Dose: 650 mg Apixaban (Eliquis) 5 mg PO BID [facility] Last Admin: 07/23/17 19:26 Dose: 5 mg Cyanocobalamin (Vit. B-12) 1,000 mcg IM DAILY [facility] Last Admin: 07/23/17 09:52 Dose: 1,000 mcg Digoxin (Lanoxin) 125 mcg PO DAILY [facility] Last Admin: 07/23/17 09:51 Dose: 125 mcg Diltiazem HCl (Cardizem Ir) 30 mg PO ACBID30 [facility] Last Admin: 07/23/17 17:34 Dose: 30 mg Donepezil HCl (Aricept) 5 mg PO HS [facility] Last Admin: 07/23/17 19:26 Dose: 5 mg Haloperidol (Haldol) 0.5 mg PO Q6H PRN PRN Reason: Extreme agitation Last Admin: 07/18/17 19:10 Dose: 0.5 mg Haloperidol Lactate (Haldol) 0.5 mg IM Q6H PRN PRN Reason: Extreme agitation Lactobacillus Acidophilus (Culturelle) 1 cap PO [facility] Last Admin: 07/23/17 09:50 Dose: 1 cap Lorazepam (Ativan) 0.5 mg PO Q6H PRN PRN Reason: Extreme agitation Last Admin: 07/21/17 19:40 Dose: 0.5 mg Lorazepam (Ativan Inj) 0.5 mg IM Q6H PRN PRN Reason: Extreme agitation Metformin HCl (Glucophage) 500 mg PO [facility] Last Admin: 07/23/17 09:50 Dose: 500 mg Quetiapine Fumarate (Seroquel) 50 mg PO 1900 [facility] Last Admin: 07/23/17 18:33 Dose: 50 mg Subjective: Pt seen and chart examined. Nursing reports pt is doing well. Has a foot that is painful and can become irritable if foot is touched. Otherwise pt is doing well. Sleeping well and has a good appetite. No behaviors noted. On face to face the pt states he is doing well. He is pleasant but confused. He reports his mood is stable. Tolerating meds Start Time: 17:30 Stop Time: 17:45 Mental Status Exam Vitals: Last Vital Signs Temp 97.6 F 07/23/17 19:11 Pulse 79 07/23/17 19:11 Resp 18 07/23/17 19:11 BP 136/69 07/23/17 19:11 Pulse Ox 97 07/23/17 19:11 Height: 1.8 m Weight: 87.9 kg - Mental Status Exam Muscle Strength/Tone: Normal Dressing: Casual Grooming: Good Attitude: Cooperative Motor Activity: Normal Eye Contact: Fair Speech: Slowed Volume: Soft Rhythm: Appropriate Rhythm Orientation: Oriented to person, Oriented to time Mood: Euthymic (Affect labile, improving - worse in evenings) Rate of Thoughts: Delayed Thought Organization: [place] Associations: Intact Abstract Reasoning: Impaired, concrete Thought Content: Normal Perception/Psychotic: Perception Normal Language: Naming Impaired Fund of Knowledge: Poor fund of knowledge Memory: Poor-immediate, Poor-recent Suicidal Ideation: None Homicidal Ideation: None Insight: Poor Judgement: Poor Impulse Control: Fair - Laboratory Result Diagrams: 07/16/17 17:11 07/16/17 17:11 Laboratory Results - last 24 hr 07/23/17 06:42 Glucometer 130 Assessment and Plan (1) Major neurocognitive disorder Problem details: With behavioral disturbance most likely Alzheimer's Type Current visit: Yes Status: Acute Hospital Course Summary Disclaimer: The visit summary below is not to be considered part of the above Progress Note. Hospital Course: 07/18/17 20:36 Increase Seroquel to 50mg and give at 1900 instead of HS 07/19/17 20:06 Pt slightly improved. Increased Seroquel yesterday. Continue current care 07/20/17 Plan Continue 1000 g vitamin B-12 IM daily Will continue to follow blood pressures routinely. Continue Eliquis, Cardizem and digoxin for atrial fibrillation Continue metformin . Blood sugars appear to be well controlled, fasting sugar this slightly elevated at 179 Will need Suture removal from ear on 07/23/17 if patient is still here. Otherwise , he is scheduled to have this done in [place] 07/23/17 20:39 continue current care
[2017-07-24] MEDS: APIXABAN 5 MG TABLET PO SCH ×3 (00:45→20:00)
[2017-07-24] MEDS: DONEPEZIL 5 MG TABLET PO SCH ×2 (00:45→20:00)
[2017-07-24] MEDS: LACTOBACILLUS (15B cfu) CAPSULE PO SCH (08:49)
[2017-07-24] MEDS: DiltiaZEM IR 30 MG TABLET PO SCH ×2 (08:49→17:16)
[2017-07-24] MEDS: METFORMIN 500 MG TABLET PO SCH (08:49)
[2017-07-24] MEDS: DIGOXIN 125 MCG TABLET PO SCH (08:49)
[2017-07-24] MEDS: CYANOCOBALAMIN (B-12) 1,000mcg/ml INJECTION IM SCH (08:50)
--- NOTE | 2017-07-24 10:42 | Progress Note ---
Subjective: Mr. Rincon was still in bed this am but easily awakened and stated he was ready to get up for the day. He was pleasant and cooperative. He states he rested well last night. He denied any acute concerns such as chest pain, dizziness, SOA , fever, or abdominal c/o. His nurse reported that his right foot has been causing him some problems - but he denied any pain/discomfort this am. I helped him up out of bed and into the bathroom - he had a steady gait. Objective Vital signs: Temperature 97.6 F 07/24/17 08:54 Pulse Rate 89 07/24/17 08:54 Respiratory Rate 16 07/24/17 08:54 Blood Pressure 154/76 H 07/24/17 08:54 Pulse Oximetry 97 07/24/17 08:54 Oxygen Delivery Method Room Air Height/Weight/BMI: Height 1.8 m Weight 87.9 kg Body Mass Index 26.6 - Constitutional Present: no acute distress, well nourished, well developed - Routine HEENT Exam Eye: Present: EOMI ENT: Present: mucous membranes moist, dentition normal Comments: laceration has healed well - Routine Respiratory Exam Present: CTA bilaterally - Routine Cardiovascular Exam Present: RRR, S1, S2 - Routine Abdominal Exam Present: soft, normoactive bowel sounds, non distended, non tender - Routine Extremities Exam Present: no edema, non tender, pulses intact, normal capillary refill - Routine Musculoskeletal Exam Musculoskeletal: Present: no clubbing or cyanosis, moving extremities well. Absent: limp with gait - Routine Skin Exam Present: intact, dry, warm - Routine Neurological Exam Present: alert, CN II-XII intact - Routine Psychiatric Exam Present: normal affect, normal thought process, cooperative Results - Labs CBC & Chem 7: 07/16/17 17:11 07/16/17 17:11 Assessment and Plan (1) Alzheimer's dementia Current visit: Yes Status: Acute (2) Dementia with behavioral disturbance Current visit: Yes Status: Acute (3) Type 2 diabetes mellitus Problem details: A1c 8.5% on 06/04/17 Current visit: Yes Status: Acute DVT Prophylaxis: Eliquis Resuscitation Status: Do Not Resuscitate Assessment and Plan: Impression Dementia with behavior disturbance. Paroxysmal A. fib, on anticoagulation. Hypertension-fair control Type 2 diabetes mellitus-fair control on metformin Low B 12 Elevated cholesterol/triglyceride Plan Sutures to ear removed - healing well. Continue on IM B12 for low B12 level. Discussed with nursing staff. Psych notes reviewed. Labs last done on 07/16/17 - stable at that time. Not compelled to check labs again at this time because of his medical stability. Sepsis Assessment - Evaluation Sepsis screening result: No Definite Risk Hospital Course Summary Disclaimer: The visit summary below is not to be considered part of the above Progress Note. Hospital Course: 07/18/17 20:36 Increase Seroquel to 50mg and give at 1900 instead of HS 07/19/17 20:06 Pt slightly improved. Increased Seroquel yesterday. Continue current care 07/20/17 Plan Continue 1000 g vitamin B-12 IM daily Will continue to follow blood pressures routinely. Continue Eliquis, Cardizem and digoxin for atrial fibrillation Continue metformin . Blood sugars appear to be well controlled, fasting sugar this slightly elevated at 179 Will need Suture removal from ear on 07/23/17 if patient is still here. Otherwise , he is scheduled to have this done in [place] 07/23/17 20:39 continue current care
--- NOTE | 2017-07-24 18:08 | Neuropsych Progress Note ---
[facility] Subjective Date: 07/24/17 - Sujective/Severity of Illness Medications: Acetaminophen (Tylenol) 650 mg PO Q5H PRN PRN Reason: Discomfort Last Admin: 07/21/17 19:20 Dose: 650 mg Apixaban (Eliquis) 5 mg PO BID [facility] Last Admin: 07/24/17 08:49 Dose: 5 mg Cyanocobalamin (Vit. B-12) 1,000 mcg IM DAILY [facility] Last Admin: 07/24/17 08:50 Dose: 1,000 mcg Digoxin (Lanoxin) 125 mcg PO DAILY [facility] Last Admin: 07/24/17 08:49 Dose: 125 mcg Diltiazem HCl (Cardizem Ir) 30 mg PO ACBID30 [facility] Last Admin: 07/24/17 17:16 Dose: 30 mg Donepezil HCl (Aricept) 5 mg PO HS [facility] Last Admin: 07/24/17 00:45 Dose: Not Given Haloperidol (Haldol) 0.5 mg PO Q6H PRN PRN Reason: Extreme agitation Last Admin: 07/18/17 19:10 Dose: 0.5 mg Haloperidol Lactate (Haldol) 0.5 mg IM Q6H PRN PRN Reason: Extreme agitation Lactobacillus Acidophilus (Culturelle) 1 cap PO [facility] Last Admin: 07/24/17 08:49 Dose: 1 cap Lorazepam (Ativan) 0.5 mg PO Q6H PRN PRN Reason: Extreme agitation Last Admin: 07/21/17 19:40 Dose: 0.5 mg Lorazepam (Ativan Inj) 0.5 mg IM Q6H PRN PRN Reason: Extreme agitation Metformin HCl (Glucophage) 500 mg PO [facility] Last Admin: 07/24/17 08:49 Dose: 500 mg Quetiapine Fumarate (Seroquel) 50 mg PO 1900 [facility] Last Admin: 07/23/17 18:33 Dose: 50 mg Subjective: Pt seen and chart examined. Nursing reports pt is doing well. Sleeping well and has a good appetite. No behaviors noted. On face to face the pt states he is doing well. He is pleasant and oriented x 2. He reports his mood is stable and he denies any psychosis. Tolerating meds. Start Time: 17:30 Stop Time: 17:45 Mental Status Exam Vitals: Last Vital Signs Temp 97.4 F 07/24/17 15:58 Pulse 75 07/24/17 15:55 Resp 15 07/24/17 15:55 BP 158/79 H 07/24/17 15:55 Pulse Ox 95 07/24/17 15:55 Height: 1.8 m Weight: 87.9 kg - Mental Status Exam Muscle Strength/Tone: Normal Dressing: Casual Grooming: Good Attitude: Cooperative Motor Activity: Normal Eye Contact: Fair Speech: Slowed Volume: Soft Rhythm: Appropriate Rhythm Orientation: Oriented to person, Oriented to time Mood: Euthymic (Affect labile, improving - worse in evenings) Rate of Thoughts: Delayed Thought Organization: [place] Associations: Intact Abstract Reasoning: Impaired, concrete Thought Content: Normal Perception/Psychotic: Perception Normal Language: Naming Impaired Fund of Knowledge: Poor fund of knowledge Memory: Poor-immediate, Poor-recent Suicidal Ideation: None Homicidal Ideation: None Insight: Poor Judgement: Poor Impulse Control: Fair - Laboratory Result Diagrams: 07/16/17 17:11 07/16/17 17:11 Assessment and Plan (1) Major neurocognitive disorder Problem details: With behavioral disturbance most likely Alzheimer's Type Current visit: Yes Status: Acute Hospital Course Summary Disclaimer: The visit summary below is not to be considered part of the above Progress Note. Hospital Course: 07/18/17 20:36 Increase Seroquel to 50mg and give at 1900 instead of HS 07/19/17 20:06 Pt slightly improved. Increased Seroquel yesterday. Continue current care 07/20/17 Plan Continue 1000 g vitamin B-12 IM daily Will continue to follow blood pressures routinely. Continue Eliquis, Cardizem and digoxin for atrial fibrillation Continue metformin . Blood sugars appear to be well controlled, fasting sugar this slightly elevated at 179 Will need Suture removal from ear on 07/23/17 if patient is still here. Otherwise , he is scheduled to have this [place] 07/23/17 20:39 continue current care 07/24/17 18:08 Plan D/C for tomorrow
--- NOTE | 2017-07-24 18:13 | Discharge Instructions ---
Discharge Plan - Med Rec/Dispo Referrals/Follow Up: Ray Reese MD [Other] (Dr. Kellee Reese on 08/03/17 at 1:30 pm for Hosp. follow-up. . [place] [id number] Dr. Kellee Reese will manage patients meds for Mental Health.) Additional Instructions: Discharge Diagnosis: Major Neurocognitive Disorder with Behavioral Disturbance Reasons for Admission: Aggressive with staff, and inappropriate comments of a sexual nature. IN CASE OF PSYCHIATRIC EMERGENCY, CONTACT GENERATIONS STAFF AT [phone] ( available 24 hrs daily). Prescriptions: New Quetiapine [Seroquel] 50 mg PO 1900 #30 tab Continue Donepezil [Aricept] 5 mg PO HS Discontinued Quetiapine [Seroquel] 25 mg PO DAILY ClonazePAM [Klonopin] 0.5 mg PO Q8H PRN PRN Reason: Agitation No Action Apixaban [Eliquis] 5 mg PO BID Metformin [Glucophage] 500 mg PO DAILY Digoxin [Digoxin] 125 mcg PO DAILY Lactobacillus Acidophilus [Acidophilus] 1 each PO DAILY Acetaminophen 500 mg PO QIDPRN PRN PRN Reason: Pain DiltiaZEM IR [Cardizem Ir] 30 mg PO BID Discharge Instructions/Outpatient Orders: Criteria for Antipsychotic Use Location: Determined By Patient Final Provider Discharge Instructions Location: Determined By Patient - Disposition 01 Discharged Home, Self-Care
--- NOTE | 2017-07-24 18:16 | Extended Care Facility Orders ---
Admission Orders Admit to:: Other Allergies/Adverse Reactions: Allergies sotalol Allergy (Verified 07/16/17 18:00) Admitting Diagnosis: Unspec major neurocognitive disord w/behav distur Admitting Physician: Angel Beckman MD Attending Physician: Angel Beckman MD Code Status: Do Not Resuscitate Anticiapted Length of Stay: greater than 30 days Rehab Potential: good Rehab Prognosis: good Diet: 07/17/17 Breakfast Consistent Carbohydrate Diet [DIET] Calorie Level: 2000 May use Facility Protocol or Standing Orders: Yes May have flu vaccine: Yes Evaluations/Treatment: as needed Nursing Home Certification: I certify that SNF services are required to be given on an Inpatient basis because of the patients need for half-way care on a continuing basis for the condition(s) for which he/she received inpatient hospital services prior to his/her transfer to the SNF. SNF inpatient care is necessary for the following reasons Indication for Nursing Home: Not Applicable - Additional Information In Event of Arrest: Start CPR,call 911,send patient to the ER Resident is Aware of Diagnosis: Yes Referrals: Ray Reese MD [Other] (Dr. Kellee Reese on 08/03/17 at 1:30 pm for Hosp. follow-up. . [facility] [place] [id number] Dr. Kellee Reese will manage patients meds for Mental Health.)
[2017-07-24] MEDS: QUETIAPINE 25 MG TABLET PO SCH (20:00)
[2017-07-25] MEDS: DiltiaZEM IR 30 MG TABLET PO SCH (08:26)
[2017-07-25] MEDS: LACTOBACILLUS (15B cfu) CAPSULE PO SCH (08:27)
[2017-07-25] MEDS: METFORMIN 500 MG TABLET PO SCH (08:27)
[2017-07-25] MEDS: DIGOXIN 125 MCG TABLET PO SCH (08:27)
[2017-07-25] MEDS: APIXABAN 5 MG TABLET PO SCH (08:27)
[2017-07-25] MEDS: CYANOCOBALAMIN (B-12) 1,000mcg/ml INJECTION IM SCH (08:27)
[2017-07-25 08:58] VITALS: BP 179/92; PULSE 75; RESP 16; TEMP 98.5; O2SAT 94
--- NOTE | 2017-07-25 09:31 | Discharge Instructions ---
Discharge Plan - Med Rec/Dispo Referrals/Follow Up: Ray Reese MD [Other] (Dr. Kellee Reese on 08/03/17 at 1:30 pm for Hosp. follow-up. . [place] [id number] Dr. Kellee Reese will manage patients meds for Mental Health.) Additional Instructions: Discharge Diagnosis: Major Neurocognitive Disorder with Behavioral Disturbance Reasons for Admission: Aggressive with staff, and inappropriate comments of a sexual nature. IN CASE OF PSYCHIATRIC EMERGENCY, CONTACT GENERATIONS STAFF AT [phone] ( available 24 hrs daily). Prescriptions: New Quetiapine [Seroquel] 50 mg PO 1900 #30 tab Acetaminophen [Tylenol] 650 mg PO Q5H PRN tablet PRN Reason: Discomfort Continue Apixaban [Eliquis] 5 mg PO BID Metformin [Glucophage] 500 mg PO DAILY Digoxin 125 mcg PO DAILY Lactobacillus Acidophilus [Acidophilus] 1 each PO DAILY DiltiaZEM IR [Cardizem Ir] 30 mg PO BID Donepezil [Aricept] 5 mg PO HS Discontinued Quetiapine [Seroquel] 25 mg PO DAILY ClonazePAM [Klonopin] 0.5 mg PO Q8H PRN PRN Reason: Agitation No Action Acetaminophen 500 mg PO QIDPRN PRN PRN Reason: Pain Discharge Instructions/Outpatient Orders: Criteria for Antipsychotic Use Location: Determined By Patient Final Provider Discharge Instructions Location: Determined By Patient - Disposition 01 Discharged Home, Self-Care
--- NOTE | 2017-07-26 17:48 | Neuropsychiatric Disch Summary ---
Discharge Information Date of admission: 07/16/17 18:22 Attending Physician: Angel Beckman MD Primary care physician: Ray Reese MD - Discharge Diagnosis Discharge Diagnosis: Major neurocognitive Disorder with behavioral Disturbance Date of Admission: 07/16/17 18:22 History of Present Illness: HPI: 86 Y/O CM with a hx of dementia sent from [place] in [place] for increasing agitation and aggression with staff at times. Daughter reports the pt became angry with staff and grabbed them on the arm and then told another staff member he was going to harm her. On face to face the pt is pleasant but confused. He oriented x 2. He believes he is in [place]. He denies any pain, depression , S/I or psychosis. STRESSORS: Denies PSYCH ROS: Pt denies any depression, anxiety, greer or psychosis. He has a hx of dementia with some behavioral issues. PAST PSYCH: Denies any past psych hx. SUBSTANCE ABUSE: Denies any hx of substance abuse Hospital Course This is a general summary of the patient's hospital course. For more details refer to the complete medical record. Hospital course: 07/18/17 20:36 Increase Seroquel to 50mg and give at 1900 instead of HS 07/19/17 20:06 Pt slightly improved. Increased Seroquel yesterday. Continue current care 07/20/17 Plan Continue 1000 g vitamin B-12 IM daily Will continue to follow blood pressures routinely. Continue Eliquis, Cardizem and digoxin for atrial fibrillation Continue metformin . Blood sugars appear to be well controlled, fasting sugar this slightly elevated at 179 Will need Suture removal from ear on 07/23/17 if patient is still here. Otherwise , he is scheduled to have this done in [place] 07/23/17 20:39 continue current care 07/24/17 18:08 Plan D/C for tomorrow Discharge Plan - Med Rec/Dispo Referrals/Follow Up: Ray Reese MD [Other] (Dr. Kellee Reese on 08/03/17 at 1:30 pm for Hosp. follow-up. . [place] [id number] Dr. Kellee Reese will manage patients meds for Mental Health.) Additional Instructions: Discharge Diagnosis: Major Neurocognitive Disorder with Behavioral Disturbance Reasons for Admission: Aggressive with staff, and inappropriate comments of a sexual nature. IN CASE OF PSYCHIATRIC EMERGENCY, CONTACT GENERATIONS STAFF AT [phone] ( available 24 hrs daily). Prescriptions: New Quetiapine [Seroquel] 50 mg PO 1900 #30 tab Acetaminophen [Tylenol] 650 mg PO Q5H PRN tablet PRN Reason: Discomfort Continue Apixaban [Eliquis] 5 mg PO BID Metformin [Glucophage] 500 mg PO DAILY Digoxin 125 mcg PO DAILY Lactobacillus Acidophilus [Acidophilus] 1 each PO DAILY DiltiaZEM IR [Cardizem Ir] 30 mg PO BID Donepezil [Aricept] 5 mg PO HS Discontinued Quetiapine [Seroquel] 25 mg PO DAILY ClonazePAM [Klonopin] 0.5 mg PO Q8H PRN PRN Reason: Agitation No Action Acetaminophen 500 mg PO QIDPRN PRN PRN Reason: Pain Discharge Instructions/Outpatient Orders: Criteria for Antipsychotic Use Location: Determined By Patient Final Provider Discharge Instructions Location: Determined By Patient - Disposition 01 Discharged Home, Self-Care
== END 2017-07-25 10:30 | disposition home or self-care (01) | DRG 57 ==
LOC: ED 16:33 → GEN 18:22
PROVIDERS: ADMIT Psychiatry & Neurology Psychiatry; ATTEND Psychiatry & Neurology Psychiatry